=== PATIENT | male | born 1945 | race Caucasian/White ===

== ENCOUNTER 2019-10-14 20:03 | Inpatient (IN) ==
--- NOTE | 2019-10-15 01:21 | HISTORY AND PHYSICAL ---
CHIEF COMPLAINT: Shortness of breath and cough x3 days. HISTORY OF PRESENTING ILLNESS: A 74-year-old male with a history of endstage renal disease and hypertension, who presented to the emergency department initially at [facility] with a complaint of shortness of breath and coughing for the past 3 days. He was evaluated there. He had imaging done which did show pneumonia. The patient also recently had a graft placed for his endstage renal disease, and the family and the patient wanted to be transferred to [facility] for further evaluation and management. At the time of my examination the patient denied any headache, nausea, vomiting, diarrhea, chest pain or hemoptysis, but complained of shortness of breath and cough, not feeling well. PAST MEDICAL HISTORY: Includes hypertension, endstage renal disease. PAST SURGICAL HISTORY: None. ALLERGIES: Darvocet and penicillin. MEDICATIONS: Current medications include amlodipine 10 mg p.o. daily, Lasix 20 mg p.o. daily, metoprolol 25 mg p.o. daily. SOCIAL HISTORY: No history of smoking, alcohol or illicit drug use. FAMILY HISTORY: No history of coronary disease. REVIEW OF SYSTEMS: Fourteen-point review of systems is as listed in HPI. Other systems negative. PHYSICAL EXAMINATION: GENERAL: Cooperative, friendly male. He is resting more comfortably now. VITAL SIGNS: Temperature 97.8 degrees, pulse 89, respirations 22, blood pressure 151/52, saturating 96%. HEENT: Atraumatic, normocephalic. Extraocular movements intact. PERRLA. NECK: No masses. CHEST: Rhonchi. CARDIOVASCULAR: Regular rate and rhythm. ABDOMEN: Soft. Positive bowel sounds. EXTREMITIES: Edema +2. Venous stasis noted. GENITOURINARY: No bladder distention. SKIN: Warm. LABORATORY DATA: WBC 11.6, hemoglobin 6.6, hematocrit 21.0, platelets 221,000. Sodium 138, potassium 5.0, chloride 103, CO2 is 14, BUN is 84, creatinine 9.4, glucose 150. ASSESSMENT: This is a 74-year-old male with a history of hypertension and endstage renal disease, who had presented initially to [facility] with a complaint of shortness of breath and cough. He was evaluated there. He was found to have pneumonia. The patient also has endstage renal disease, and the family wanted the patient transferred to [facility] for his care. 1. Pneumonia. 2. Endstage renal disease. 3. Anemia, unspecified. 4. Hypertension. PLAN: 1. We will admit the patient to the medical floor with telemetry. 2. Check blood cultures. Start the patient on IV antibiotics. 3. We will consult Nephrology. 4. We will monitor blood pressure closely. Resume antihypertensive agents. 5. We will put the patient on DVT prophylaxis with heparin. 6. We will continue to follow and reassess, and make further recommendation based on the patient's clinical course. cc: Aneesh Martinez MD
[2019-10-15] MEDS: AZACTAM 1 GM in NS 50 ML IV SCH ×3 (02:27→21:57)
[2019-10-15] MEDS: DUONEB (A & A) INH PRN ×2 (02:48→08:02)
[2019-10-15] MEDS ORDERED: LASIX IV ONE (08:48)
[2019-10-15] MEDS ORDERED: VANCOMYCIN IV PER PHARMACY MISC SCH (09:00)
[2019-10-15] MEDS: HEPARIN SUBQ SCH ×2 (09:00→21:55)
[2019-10-15] MEDS: MUCINEX PO SCH ×2 (09:01→21:57)
--- NOTE | 2019-10-15 09:04 | Diag Imaging Result Doc PS360 ---
EXAM: CHEST-PORTABLE 10/15/2019 HISTORY: Evaluate for pneumonia TECHNIQUE: AP portable upright at 0848 COMMENT: There are no previous radiographs available for comparison. There is dense alveolar opacity in the left lower lobe and to a lesser extent in the left upper lobe and right lower lobe. There may be some pleural fluid bilaterally. IMPRESSION: Pulmonary edema and/or pneumonia. Electronically signed by Erlin Davalos 10/15/2019 9:01 AM
[2019-10-15 09:15] LABS: ALLEN TEST YES; BE -11.9 mmoll (-3.0-3.0); BLOOD TYPE ARTERIAL; HCO3-(ACT) 15.6 mmoll (20.0-26.0); METHB 0.2 % (0.0-1.5); O2(CT) 9.5 mL/dL (15.0-23.0); O2HB 94.2 % (95.0-99.0); PCO2(98.6) 40 mmHg (35-45); PO2(98.6) 62 mmHg (60-100); SAMPLE BLOOD; SAO2 96.2 % (95.0-100.0); THB 7.1 g/dL (11.5-17.4)
[2019-10-15 09:30] LABS: INR 1.34; PROTIME 16.8 Seconds (11.0-16.0)
[2019-10-15 09:31] LABS: PTT 40.1 Seconds (22.3-41.8)
[2019-10-15 09:38] LABS: BASO# 0.08 X1000 (0.0-0.2); BASO% 0.7 % (0.0-0.8); EOS# 0.47 X1000 (0.0-0.7); HEMATOCRIT 22.4 % (42.0-52.0); HEMOGLOBIN 6.8 g/dL (14.0-18.0); IMM GRAN% 1.7 % (0.0-0.5); LYMPH# 1.38 X1000 (1.2-3.4); LYMPH% 11.9 % (20.5-51.1); MCH 27.6 PG (27-31); MCHC 30.4 g/dL (33-37); MCV 91.1 FL (81-99); MONO# 1.04 X1000 (0.11-0.59); MPV 8.7 FL (7.4-10.4); NEUT# 8.45 X1000 (1.4-6.5); NEUT% 72.7 % (42.2-75.2); PLT 279 X1000 (130-400); RBC 2.46 XMIL (4.7-6.1); RDW 17.3 % (11.5-14.5); WBC 11.62 X1000 (4.8-10.8)
[2019-10-15] MEDS ORDERED: HEPARIN IV PRN (09:41)
[2019-10-15] MEDS ORDERED: TIGHT: 0.2 ML/HR FOR DIALYSIS MISC PRN (09:41)
[2019-10-15] MEDS ORDERED: NS 2,000 ML MISC PRN (09:41)
[2019-10-15 09:43] LABS: ALB/GLOB RATIO 0.8; ALBUMIN 3.2 g/dL (3.5-5.0); CALCIUM 7.3 mg/dL (8.8-10.2); CREATININE 9.5 mg/dL (0.7-1.2); MAGNESIUM 2.1 mg/dL (1.5-2.7); POTASSIUM 5.6 mmol/L (3.5-5.1); TOTAL BILIRUBIN 0.19 mg/dL (0.20-1.00); TOTAL PROTEIN 7.3 g/dL (6.3-8.3)
[2019-10-15] MEDS ORDERED: VANCOMYCIN 1 GM/NS 1 GM/250 ML IVPB IV SCH (10:00)
[2019-10-15 10:34] LABS: MODALITY CANNULA
[2019-10-15 10:35] LABS: pH(98.6) 7.19 (7.35-7.45)
[2019-10-15] MEDS ORDERED: SENSORCAINE 0.5%-EPI 1:200,000 INJ ONE (11:07)
[2019-10-15] MEDS ORDERED: NS 250 ML ONE (11:12)
[2019-10-15] MEDS: HALDOL IV PRN ×2 (11:20→15:26)
[2019-10-15] MEDS: DUONEB (A & A) INH SCH ×4 (11:32→23:31)
--- NOTE | 2019-10-15 11:36 | PROGRESS NOTE ---
DATE: 10/15/2019 INTERVAL HISTORY: I was paged by the nursing team that Mr. Coley had significant dyspnea and requested a bedside evaluation. I immediately evaluated Mr. Coley at bedside. His son was at bedside. Mr. Coley is a little drowsy, though he is easily arousable. He appears tachypneic and dyspneic. He also has audible wheezing. He states that he started feeling sick on about New 's Day. Since then he has had shortness of breath, increasing cough with yellowish expectoration. He denies being diagnosed with influenza. He is not a smoker. He does not have COPD, though he uses inhalers at home. He denies known history of coronary artery disease or venous thromboembolism. VITALS: Temperature of 97.7 degrees, pulse 94, respiratory blood pressure 140/39. He is saturating 92% on 3 L nasal cannula. PHYSICAL EXAMINATION: General: He is in mild to moderate distress. HEENT: Oral cavity is moist. Lungs: Significantly decreased air entry with inspiratory crackles bilateral infrascapular region, more pronounced on the left. Cardiovascular: S1, S2 normal. Regular. No murmur or gallop. Abdomen: Obese, soft, nontender. No jugular venous distention. He has extreme edema of bilateral lower extremities and scaling. He is alert and oriented x3 at the moment. LABS: Stat labs were ordered which suggests leukocytosis normocytic anemia, normal platelet count. INR of 1.3. He has hyperkalemia, elevated BUN and creatinine, elevated proBNP. His ABG is pending. MICROBIOLOGY: Blood culture are in lab. IMAGING: A stat chest x-ray suggested pulmonary edema and/or pneumonia. ASSESSMENT AND PLAN: 1. Acute hypoxic respiratory failure due to acute bilateral pulmonary edema and bilateral lower lobe pneumonia. He also has a component of volume overload secondary to chronic kidney disease. Start broader intravenous antibiotic coverage. Continue intravenous vancomycin, intravenous aztreonam, and give a stat dose of Lasix. Insert Singer catheter for close input and output monitoring. Followup stat chest x-ray and stat ABG. Follow up blood cultures, sputum culture and urine antigen results. 2. History of essential hypertension, currently normotensive. 3. History of chronic kidney disease. According to patient it is likely hypertensive nephropathy. I will consult Nephrology team. He recently had surgery for a vascular access as outpatient, however, would require dialysis catheter if he needs to start the dialysis. Nephrology team on board. DISPOSITION: I will transfer patient to PVC unit. He looked quite ill and I discussed his clinical condition extensively with his him and his son at bedside. cc: Daljit Stewart MD
--- NOTE | 2019-10-15 12:20 | EKG Report ---
Test Performed on : 10/15/2019 12:13:27 PM Test Reason : SHortness of breath Blood Pressure : / mmHG Vent. Rate : 076 BPM Atrial Rate : 076 BPM P-R Int : 172 ms QRS Dur : 104 ms QT Int : 376 ms P-R-T Axes : 054 004 079 degrees QTc Int : 423 ms Normal sinus rhythm. Normal ECG Confirmed by Kareem TAYLOR, Geo Almonte ([id number]) on 10/17/2019 9:28:26 AM
--- NOTE | 2019-10-15 14:38 | ECHO REPORT ---
ORDER DATE: 10/15/2019 INDICATION: Bilateral lower extremity edema. Pleural effusions. FINDINGS: 1. Right atrium appears normal in size. 2. Mild tricuspid regurgitation. RV systolic pressure of 45 suggesting pulmonary hypertension. 3. Dilated right ventricle with normal RV systolic function. 4. Mild pulmonic insufficiency. 5. Mild left atrial enlargement at 4 cm. 6. No mitral valve prolapse. Mild mitral regurgitation. 7. Dilated left ventricle with an end-diastolic dimension of 6 cm. Normal wall thicknesses with a posterior and interventricular septal wall thickness of 1 cm each. Normal LV systolic function. Estimated EF of 60% with normal wall motion. 8. Aortic valve opens well. No evidence of stenosis or insufficiency. 9. Aorta appears normal in visualized segments. 10. No pericardial effusion identified. Suggestion of a pleural effusion on this study. cc: MD Daljit Edwards MD
--- NOTE | 2019-10-15 15:40 | Diag Imaging Result Doc PS360 ---
EXAM: CHEST-1 VIEW 10/15/2019 HISTORY: CONFIRM PLACEMENT OF VAS CATH TECHNIQUE: AP portable at 1526 COMMENT: There are patchy alveolar opacities bilaterally. This has improved with respect to the right lower lobe since 10/15/2019 at 0848. There is a double-lumen catheter in the left internal jugular with its tip in the superior vena cava. There is no evidence of pneumothorax. IMPRESSION: Pulmonary edema versus pneumonia. Slightly improved. Electronically signed by Erlin Davalos 10/15/2019 3:38 PM
[2019-10-15] MEDS: TYLENOL PO PRN (16:02)
--- NOTE | 2019-10-15 16:29 | NEPHROLOGY CONSULTATION ---
DATE: 10/15/2019 REASON FOR CONSULTATION: Respiratory failure and renal failure. HISTORY OF PRESENT ILLNESS: Mr. Coley is a 74-year-old white male who is well known to me. He has chronic kidney disease stage 5 secondary to hypertension and IgA nephropathy by biopsy performed 03/01/2018. His kidney function has been deteriorating and we have been making plans for renal replacement therapy. Specifically, he plans for hemodialysis when required. He underwent fistula creation by Dr. Radford approximately 3 weeks ago using a percutaneous technique. Unfortunately he has become ill in the last several days and required admission to the hospital. Specifically, he has been experiencing worsening shortness of breath, cough, sputum production for the last 3 days least. No chills or fevers. He presented to the emergency room in [place] where a chest x-ray suggested pneumonia and after consultation with the patient and family, he was transferred to this facility. At this time he is on closed face mask, remains significantly short of breath. No change in urine output. More swelling. PAST MEDICAL HISTORY: As above. HOME MEDICATIONS: Include amlodipine, furosemide, metoprolol. ALLERGIES: Penicillin, propoxyphene, sulfa. SOCIAL HISTORY: . Lives with his family in [place]. No alcohol or tobacco. FAMILY HISTORY: Noncontributory. REVIEW OF SYSTEMS: Noncontributory. PHYSICAL EXAMINATION: Vital Signs: Blood pressure 140/38, heart rate 73, respirations 14, afebrile. General: Moderate respiratory distress. Skin is warm and dry. Conjunctivae are pink. Pupils are equal. Oropharynx is clear. Neck: Supple. Neck vein distention is present. Trachea is midline. Heart: PMI is hyperdynamic. Auscultation demonstrates a regular rhythm with no rubs, no gallops. Lungs: Have equal breath sounds with crackles and decreased breath sounds in the bases. Abdomen: Soft, nontender. Bowel sounds are present. No organomegaly or masses. Extremities: With 2+ edema primarily below the knee. No clubbing or cyanosis. Left arm AV fistula has a prominent thrill but contours of the vessel are difficult to discern. Neurologic: Nonfocal. IMPRESSION: Chronic kidney disease stage 5. Chest x-ray supports a diagnosis of pulmonary edema with or without pneumonia. He has potassium 5.6, bicarbonate 15. ABG with combined metabolic and respiratory acidoses. I believe it is in the patient's best interest to initiate dialysis. I counseled him about this as well as his family. We have been trying to put off dialysis initiation awaiting functional fistula but given the circumstances, I have spoken with Dr. Russell who will place a temporary Vas-Cath so that we can initiate treatment. We will reassess his fistula on Thursday. We will manage his acidosis and hyperkalemia with dialysis today. Hemoglobin is 6.8. May require transfusion. cc: Rudi Montgomery MD
[2019-10-15] MEDS ORDERED: VANCOMYCIN 1 GM/NS 1 GM/250 ML IVPB IV ONE (17:00)
--- NOTE | 2019-10-15 17:37 | OPERATIVE NOTE ---
PROCEDURE DATE: 10/15/2019 PREOPERATIVE DIAGNOSIS: 1. Acute on chronic kidney disease. 2. Pneumonia. 3. Respiratory failure. POSTOP DIAGNOSIS: 1. Acute on chronic kidney disease. 2. Pneumonia. 3. Respiratory failure. PROCEDURE: Insertion of central venous dialysis catheter with ultrasound guidance. SURGEON: Seb Russell MD. ESTIMATED BLOOD LOSS: 3 mL. COMPLICATIONS: None apparent. FINDINGS: Access of the right internal jugular vein was attempted initially. It was compressible, patent and without thrombus on ultrasound. However, after initial attempt at cannulation it became somewhat smaller but still appeared to be patent on ultrasound. The left internal jugular vein was found with ultrasound was found to be compressible, patent, without thrombus. TECHNIQUE: He was placed in supine position. The right neck was prepped and draped 1st with the usual sterile technique. 1% lidocaine was used to anesthetize the skin over the internal jugular vein. I was able to cannulate the vein under ultrasound guidance a couple of different times however the wire would not pass perhaps due to a valve in the vein. I aborted any further attempts on the right side. We then prepped and draped the left side. I was able to access the vein with 1 stick under ultrasound guidance. The wire passed through the needle easily, the track was dilated. A double lumen dialysis catheter was passed over the wire into the vein via the Seldinger technique. The wire was removed. Both ports were flushed with saline. Sterile caps were applied. It was anchored to the skin with nylon suture. Sterile dressing was applied. A chest x-ray was ordered. There were no apparent complications. cc: Seb Russell MD
[2019-10-15] MEDS ORDERED: DILAUDID IV ONE (20:49)
--- NOTE | 2019-10-15 22:09 | EKG Report ---
Test Performed on : 10/15/2019 9:54:41 PM Test Reason : rhythm change Blood Pressure : / mmHG Vent. Rate : 089 BPM Atrial Rate : 089 BPM P-R Int : 184 ms QRS Dur : 102 ms QT Int : 376 ms P-R-T Axes : 049 -12 092 degrees QTc Int : 457 ms Normal sinus rhythm. Abnormal QRS-T angle, consider primary T wave abnormality Abnormal ECG When compared with ECG of 15-OCT-2019 12:13, (Unconfirmed) No significant change was found Confirmed by Kareem TAYLOR, Geo Almonte ([id number]) on 10/17/2019 9:28:46 AM
[2019-10-15 22:18] LABS: HEMATOCRIT 19.9 % (42.0-52.0)
[2019-10-16] MEDS ORDERED: NS 500 ML IV SCH (00:30)
[2019-10-16] MEDS: DUONEB (A & A) INH SCH ×6 (03:35→22:54)
[2019-10-16] MEDS: TYLENOL PO PRN ×2 (04:41→14:08)
[2019-10-16] MEDS: AZACTAM 1 GM in NS 50 ML IV SCH ×4 (05:11→21:19)
[2019-10-16 06:31] LABS: BASO# 0.05 X1000 (0.0-0.2); BASO% 0.6 % (0.0-0.8); EOS# 0.64 X1000 (0.0-0.7); EOS% 7.9 % (0.0-10.0); HEMATOCRIT 21.7 % (42.0-52.0); HEMOGLOBIN 6.6 g/dL (14.0-18.0); IMM GRAN# 0.08 X1000 (0.0-0.04); LYMPH# 1.24 X1000 (1.2-3.4); LYMPH% 15.3 % (20.5-51.1); MCH 27.4 PG (27-31); MCHC 30.4 g/dL (33-37); MONO# 0.74 X1000 (0.11-0.59); MONO% 9.1 % (1.7-9.3); NEUT# 5.34 X1000 (1.4-6.5); NEUT% 66.1 % (42.2-75.2); PLT 209 X1000 (130-400); RBC 2.41 XMIL (4.7-6.1); RDW 16.3 % (11.5-14.5); WBC 8.09 X1000 (4.8-10.8)
--- NOTE | 2019-10-16 06:51 | Diag Imaging Result Doc PS360 ---
EXAM: CHEST-PORTABLE 10/16/2019 HISTORY: dyspnea TECHNIQUE: AP portable at 0619 COMMENT: There is alveolar opacity throughout the lingula and left lower lobe and right lower lobe with minimal opacification of the right upper lobe. This appears slightly worse than on the previous study of 10/15/2019. There is cardiomegaly. IMPRESSION: Worsened pulmonary edema. Electronically signed by Erlin Davalos 10/16/2019 6:49 AM
[2019-10-16 07:01] LABS: IRON SATURATION 29 %; TIBC 153 ug/dL; TOTAL IRON 44 ug/dL (53-167); UNBOUND IRON 109 ug/dL (112-346)
[2019-10-16] MEDS ORDERED: LASIX IV ONE (07:14)
[2019-10-16 07:18] LABS: MAGNESIUM 1.8 mg/dL (1.5-2.7); PHOSPHORUS 8.6 mg/dL (2.7-4.5)
[2019-10-16 07:41] LABS: POTASSIUM 4.7 mmol/L (3.5-5.1)
[2019-10-16 07:51] LABS: FERRITIN 176 ng/mL (30-400)
[2019-10-16] MEDS ORDERED: LASIX 120 MG in NS 25 ML IV ONE (08:00)
[2019-10-16] MEDS ORDERED: HEPARIN IV PRN (08:13)
[2019-10-16] MEDS ORDERED: NS 2,000 ML MISC PRN (08:13)
--- NOTE | 2019-10-16 09:38 | PROGRESS NOTE ---
DATE: 10/16/2019 INTERVAL HISTORY: He underwent hemodialysis yesterday. He was transferred to [facility] Unit. No other acute overnight events. He was on BiPAP and was transitioned to nasal cannula in the morning time and is saturating 92%. SUBJECTIVE: He states he is still feeling sick and is feeling short of breath. He is coughing with expectoration. He is denying any chest pain. VITAL SIGNS: Temperature of 98.5 degrees, pulse 80, respiratory rate 20, blood pressure 170/55, saturating 96% on 5 L nasal cannula. PHYSICAL EXAMINATION: General: Tachypneic, in mild distress. HEENT: Oral cavity is moist. Lungs: He has decreased air entry with inspiratory crackles in bilateral lung xie, more pronounced on the lower part. Cardiovascular: S1, S2 normal. Not tachycardic. No murmur, rub, or gallop. Abdomen: Obese, soft, nontender. Extremities: He has extreme edema of bilateral lower extremities and scaling. Neurologic: He is alert and oriented x3. LABORATORY DATA: Suggestive of improving leukocytosis. He does have anemia and he received 1 unit of blood transfusion. Chemistry suggestive of improving hyperkalemia, elevated BUN and creatinine, hypocalcemia. Microbiology: Blood cultures are in lab. IMAGING: Chest x-ray yesterday morning suggests worsened pulmonary edema. ASSESSMENT AND PLAN: 1. Acute hypoxic respiratory failure due to acute bilateral pulmonary edema in the setting of volume overload related to chronic kidney disease as well as bilateral lower lobe pneumonia. Continue dialysis per Nephrology recommendation. I will give another dose of intravenous Lasix stat. Continue intravenous vancomycin, aztreonam with Singer catheter and close input and output monitoring. Continue oxygenation to maintain saturation more than 92% and follow up serial ABG. His sputum culture has not been collected. 2. Essential hypertension. I will resume his home medication as tolerated. 3. History of chronic kidney disease, likely related to hypertensive nephropathy. I will appreciate Nephrology recommendation regarding dialysis today. He received a left-sided chest hemodialysis catheter yesterday. 4. Normocytic anemia: Ferritin levels are normal. This could be related to his CKD. He required 1 PRBC transfusion overnight. I will appreciate Nephrology recommendations regarding transfusion during dialysis today. DISPOSITION: Continue to monitor patient in [facility]. cc: Daljit Stewart MD [facility] SYSTEMMary
[2019-10-16] MEDS: HEPARIN SUBQ SCH ×2 (12:36→20:48)
[2019-10-16] MEDS: MUCINEX PO SCH ×2 (12:36→20:48)
[2019-10-16 13:44] LABS: ALLEN TEST YES; BE -1.4 mmoll (-3.0-3.0); BLOOD TYPE ARTERIAL; HCO3-(ACT) 23.8 mmoll (20.0-26.0); METHB 1.5 % (0.0-1.5); MODALITY CANNULA; O2HB 92.8 % (95.0-99.0); PCO2(98.6) 45 mmHg (35-45); PO2(98.6) 62 mmHg (60-100); SAMPLE BLOOD; THB 7.6 g/dL (11.5-17.4); pH(98.6) 7.34 (7.35-7.45)
[2019-10-16] MEDS ORDERED: VANCOMYCIN 1 GM/NS 1 GM/250 ML IVPB IV ONE (17:00)
[2019-10-16] MEDS ORDERED: MELATONIN PO SCH (21:00)
[2019-10-17] MEDS ORDERED: MELATONIN PO ONE (01:03)
[2019-10-17] MEDS: DUONEB (A & A) INH SCH ×5 (03:33→23:29)
[2019-10-17] MEDS: AZACTAM 1 GM in NS 50 ML IV SCH ×3 (05:25→20:22)
[2019-10-17] MEDS ORDERED: TIGHT: 0.2 ML/HR FOR DIALYSIS MISC PRN (06:14)
[2019-10-17] MEDS ORDERED: NS 2,000 ML MISC PRN (06:14)
[2019-10-17] MEDS ORDERED: HEPARIN IV PRN (06:14)
[2019-10-17 06:49] LABS: BASO# 0.04 X1000 (0.0-0.2); BASO% 0.5 % (0.0-0.8); EOS# 0.79 X1000 (0.0-0.7); EOS% 10.4 % (0.0-10.0); HEMOGLOBIN 7.2 g/dL (14.0-18.0); IMM GRAN# 0.07 X1000 (0.0-0.04); IMM GRAN% 0.9 % (0.0-0.5); LYMPH# 1.44 X1000 (1.2-3.4); LYMPH% 18.9 % (20.5-51.1); MCH 27.6 PG (27-31); MONO# 1.06 X1000 (0.11-0.59); MONO% 13.9 % (1.7-9.3); MPV 9.3 FL (7.4-10.4); NEUT# 4.23 X1000 (1.4-6.5); NEUT% 55.4 % (42.2-75.2); PLT 221 X1000 (130-400); RBC 2.61 XMIL (4.7-6.1); RDW 16.1 % (11.5-14.5); WBC 7.63 X1000 (4.8-10.8)
[2019-10-17 07:14] LABS: CALCIUM 7.2 mg/dL (8.8-10.2); POTASSIUM 4.1 mmol/L (3.5-5.1)
[2019-10-17 07:20] LABS: CREATININE 6.6 mg/dL (0.7-1.2)
[2019-10-17 09:55] LABS: HEPATITIS PROFILE ACUTE SEE COMMENTS
--- NOTE | 2019-10-17 10:48 | NEPHROLOGY PROGRESS NOTE ---
DATE: 10/17/2019 TIME SEEN: 0630. SUBJECTIVE: Mr. Coley states that he is feeling much better. Has not been up out of bed. Continues with Vas-Cath to the left IJ. LABORATORY DATA: Sodium 140, potassium 4.1, chloride 100, CO2 of 24, BUN 49, creatinine 6.6, glucose 120, his anion gap is 16, calcium is 7.2, albumin 3.2. White count 7.63, hemoglobin 7.2, hematocrit 24, platelet count 221,000. OBJECTIVE: Most Recent Vital Signs: Temperature 98.4 degrees, blood pressure 141/59, heart rate is 124, respirations are 16. He is currently on 6 L nasal cannula. Last recorded saturation 93%. He has had 100 in. He has had 4.3 L removed on his previous dialysis. General: This is a 74- year-old, white male. He is currently resting quietly in bed. He appears chronically ill, in no acute distress. Skin: Warm and dry. HEENT: Normocephalic, atraumatic. Conjunctiva is pale. He has TAMERA. Mucous membranes are dry. Neck: Supple. Trachea midline. He has positive JVD with hepatojugular reflux. Cardiovascular: Regular rate and rhythm. He has a systolic murmur present. Lungs: Clear to auscultation anterior. Diminished breath sounds posterior bases. Remains on 6 L nasal cannula. Occasional cough. Abdomen: Large, round, soft, nontender. Positive bowel sounds. Genitourinary: Not inspected. The patient has Singer catheter in place with adequate urine out. Extremities: Continues with 2+ lower extremity edema up into the mid hip region. The patient has a left arm AV fistula with palpable thrill. Neurological: Alert and oriented x3. ASSESSMENT AND PLAN: 1. Chronic kidney disease stage 5. The patient has started on hemodialysis in the hospital. Currently has a Vas-Cath to the left internal jugular. He has an arteriovenous fistula to the left forearm. It has palpable thrill. We will request vascular lab to evaluate the blood flow to this fistula, with possible plan for use if stable in the near future. Plan for dialysis today per his Vas-Cath. He is to dialyze on a 2-potassium bath. He will dialyze for 3.5 hours. We will attempt to pull 4 liters of ultrafiltration. 2. Electrolytes and acid-base balance with correction on dialysis. 3. Anemia. This is low with a hemoglobin of 7.2. The patient has received 1 unit of pheresed packed red blood cells. We will continue to monitor and evaluate. I would like to thank you for allowing us to follow with this patient. Dictated by LONNIE Hernández for Rudi Montgomery MD Face to face encounter, data reviewed, discussed with Silvino Alejandre on 10/17/19. I agree with the above assessment and plan of care. cc: LONNIE Hernández MD [facility]
[2019-10-17] MEDS: MUCINEX PO SCH ×2 (12:59→20:22)
[2019-10-17] MEDS: HEPARIN SUBQ SCH ×2 (12:59→20:22)
[2019-10-17] MEDS: FOLIC ACID PO SCH (13:06)
[2019-10-17] MEDS: TYLENOL PO PRN ×2 (13:36→20:22)
--- NOTE | 2019-10-17 14:01 | Diag Imaging Result Doc PS360 ---
EXAM: CHEST-PORTABLE HISTORY: fluid volume overload TECHNIQUE: Single view COMPARISON: 10/16/2019 FINDINGS: There is a [id number] sized left pleural effusion. There are increased interstitial markings. These are less prominent than on the prior study. There is atelectasis in the left base. No change in the left catheter. IMPRESSION: Interval improvement Electronically signed by Segundo Montgomery 10/17/2019 1:58 PM
[2019-10-17] MEDS: OXY IR PO PRN (15:29)
[2019-10-17] MEDS ORDERED: VANCOMYCIN 1 GM/NS 1 GM/250 ML IVPB IV ONE (17:00)
--- NOTE | 2019-10-17 17:56 | PROGRESS NOTE ---
DATE: 10/17/2019 INTERVAL HISTORY: No acute events overnight. He denies any new complaints except back pain. His is at bedside. We discussed about improving pneumonia. I answered all of his questions. VITALS: Temperature 98 degrees, pulse 81, respiratory rate 19, and blood pressure 170/55. He is saturating 97% on 3 L nasal cannula. PHYSICAL EXAMINATION: General: Not in acute distress. HEENT: Oral cavity is moist. Respiratory: He had decreased air entry with inspiratory crackles bilateral infrascapular region. It is more pronounced on the left. Cardiovascular: S1, S2 normal. No murmur or gallop. Abdomen: Obese, soft. There is dullness to percussion over the flanks. Extremities and Neurologic: His lower extremity edema is significantly improved. He does have generalized erythema and flaking of the lower extremities. He is alert and oriented x3. He has a dialysis catheter in his chest. Left upper extremity fistula with a thrill. LABORATORY: Labs suggestive of resolution of leukocytosis, normocytic anemia, normal platelet count, elevated BUN and creatinine, and hypocalcemia is improving. MICROBIOLOGY: No positive data. DIAGNOSTIC: Chest x-ray suggests interval improvement. ASSESSMENT AND PLAN: 1. Acute hypoxic respiratory failure due to acute bilateral pulmonary edema in the setting of volume overload related to chronic kidney disease as well as bilateral lower lobe pneumonia. Continue dialysis as per Nephrology, intravenous vancomycin and aztreonam. Decrease oxygen to maintain saturation more than 92%. No positive culture data yet. 2. Essential hypertension. He has been hypertensive today, and I will start him on his home metoprolol though his home medications have not been reconciled yet. Considering lower extremity edema, I am holding his amlodipine. 3. History of chronic kidney disease. He was following up with Nephrology outpatient however, and it was being monitored outpatient. However, considering his volume overload on presentation, dialysis has been initiated. 4. Normocytic anemia. He is status post 1 unit of RBC transfusion. 5. I appreciate Nephrology's recommendation about future need of transfusion. DISPOSITION: I will continue to monitor patient in [facility]. I will transition him to routine medical floor in the next 24 hours. Plan of care discussed with the patient. His questions have been answered. His 's questions have also been answered. I will add oxycodone for his back pain as well as increase the dose of melatonin for insomnia. He would need definite dialysis plan and accordingly discharge in next 48 hours or so. cc: Daljit Stewart MD [facility]
[2019-10-17] MEDS: COREG PO SCH (18:21)
[2019-10-17] MEDS: MELATONIN PO SCH (20:31)
[2019-10-18] MEDS: DUONEB (A & A) INH SCH ×7 (00:08→23:08)
[2019-10-18] MEDS: COREG PO SCH ×3 (02:02→20:24)
[2019-10-18] MEDS: AZACTAM 1 GM in NS 50 ML IV SCH ×4 (02:02→22:46)
[2019-10-18 07:52] LABS: BASO# 0.04 X1000 (0.0-0.2); BASO% 0.5 % (0.0-0.8); EOS% 12.2 % (0.0-10.0); HEMATOCRIT 24.4 % (42.0-52.0); HEMOGLOBIN 7.3 g/dL (14.0-18.0); IMM GRAN# 0.09 X1000 (0.0-0.04); IMM GRAN% 1.1 % (0.0-0.5); LYMPH# 1.65 X1000 (1.2-3.4); LYMPH% 20.1 % (20.5-51.1); MCH 27.9 PG (27-31); MCHC 29.9 g/dL (33-37); MCV 93.1 FL (81-99); MONO# 1.16 X1000 (0.11-0.59); MONO% 14.2 % (1.7-9.3); MPV 9.1 FL (7.4-10.4); NEUT# 4.25 X1000 (1.4-6.5); NEUT% 51.9 % (42.2-75.2); PLT 219 X1000 (130-400); RBC 2.62 XMIL (4.7-6.1); RDW 15.9 % (11.5-14.5); WBC 8.19 X1000 (4.8-10.8)
[2019-10-18 08:11] LABS: CALCIUM 7.6 mg/dL (8.8-10.2); CREATININE 5.5 mg/dL (0.7-1.2); MAGNESIUM 1.7 mg/dL (1.5-2.7); PHOSPHORUS 5.6 mg/dL (2.7-4.5); POTASSIUM 4.5 mmol/L (3.5-5.1)
[2019-10-18] MEDS: FOLIC ACID PO SCH (08:42)
[2019-10-18] MEDS: TYLENOL PO PRN (08:42)
[2019-10-18] MEDS: MUCINEX PO SCH ×2 (08:42→20:24)
[2019-10-18] MEDS: HEPARIN SUBQ SCH ×2 (08:42→20:25)
[2019-10-18] MEDS: HYDROCORTISONE 1% OINTMENT TOP SCH ×2 (15:05→20:25)
[2019-10-18] MEDS: MIRALAX PO SCH (20:24)
[2019-10-18] MEDS: COLACE PO SCH (20:24)
[2019-10-18] MEDS: MELATONIN PO SCH (20:24)
--- NOTE | 2019-10-18 21:22 | PROVIDER PROGRESS NOTE ---
Progress Note Subjective: Pt complains of shortness of breath with no other symptoms. Objective: temperature 98.0, pulse 64, respirations 20, blood pressure 181/45, oxygen sat 95% on 3 L nasal cannula. General: obese male lying in bed in no acute distress HEENT: normocephalic, atraumatic, pupils equal and reactive, mucous membranes moist. Trachea midline. Skin: warm and dry. Neck: supple, 8 cm JVD appreciated. Cardiovascular: distant heart tones, S1S2, regular rate and rhythm. No murmurs or gallops. Respiratory: clear anteriorly with equal entry. Abdomen: soft, obese, nontender nondistended. Bowel sounds hypoactive. : non-inspected. Extremities: 2+ pitting to BLE Neurological: drowsy, oriented to person and place. Labs: WBC 8.19, hemoglobin 7.3, hematocrit 24.4, platelet count 219, sodium 139, potassium 4.5, chloride 98, carbon dioxide 24, BUN 37, creatinine 5.5. Intake 336, output 3947. Impression: Chronic kidney disease stage 5D. His creatinine and BUN has improved with hemodialysis treatment yesterday. Besides shortness of breath, he has no other uremic complaints. We are currently using his vas-cath to the left internal Jugular. He has an AV fistula to the left forearm that is 3 weeks old and will be evaluated for use. He has been evaluated by Dr. Radford. rg Blood pressure. Slightly above target. Increase Coreg to 12.5 BID. rg Fluid volume. Expanded. He will have hemodialysis tomorrow. Electrolytes and acid base balance. Correcting with hemodialysis. Nutrition. Adequate.
[2019-10-18] MEDS: OXY IR PO PRN (22:45)
--- NOTE | 2019-10-19 00:29 | PROGRESS NOTE ---
DATE: 10/18/2019 SUBJECTIVE: The patient is sitting up reading the paper. He has multiple excoriations on his arms from scratching. He states that he has been suffering from pruritus for quite some time. OBJECTIVE: Vital signs: Temperature 98 degrees, blood pressure 131/41, heart rate 65, respirations 18, O2 saturation 96% on 2 L nasal cannula.General: This is a morbidly obese male, sitting up in bed in no acute distress. Heart: S1, S2 normal. Regular rate and rhythm. Lungs clear to auscultation bilaterally. Abdomen: Positive bowel sounds. Soft, nontender, nondistended. Extremities: Edema 2+. The patient has multiple excoriations involving his arms. Neurologic: The patient is alert and oriented x4. LABORATORY DATA: White blood cell count 8.1, hemoglobin 7.3, hematocrit 24, platelets 219,000. Sodium 139, potassium 4.5, chloride 98, CO2 is 24, BUN 37, creatinine 5.5, glucose 90. ASSESSMENT AND PLAN: 1. Acute hypoxemic respiratory failure. We will continue to try and wean the patient off of supplemental oxygen. 2. Volume overload. Slowly improving. This will be addressed during the patient's routine dialysis sessions. 3. Bilateral lobe pneumonia. Continue on the current antibiotic regimen, supplemental oxygen and bronchodilator therapy. 4. Pruritus. We will start the patient on hydrocortisone cream as needed. 5. Chronic kidney disease stage 5. Management as per the acute care nurse. 6. Hypertension. Continue on the current antihypertensive regimen. 7. Insomnia. Continue on melatonin. 8. Deep vein thrombosis prophylaxis. Continue on heparin. cc: Jeannie Garcia MD [facility]
[2019-10-19] MEDS: DUONEB (A & A) INH SCH ×6 (03:41→23:47)
[2019-10-19] MEDS: AZACTAM 1 GM in NS 50 ML IV SCH ×3 (06:30→21:15)
[2019-10-19] MEDS ORDERED: NS 2,000 ML MISC PRN (06:37)
[2019-10-19] MEDS ORDERED: TIGHT: 0.2 ML/HR FOR DIALYSIS MISC PRN (06:37)
[2019-10-19] MEDS ORDERED: HEPARIN IV PRN (06:37)
[2019-10-19 06:57] LABS: ALBUMIN 2.8 g/dL (3.5-5.0); CALCIUM 7.7 mg/dL (8.8-10.2); PHOSPHORUS 6.5 mg/dL (2.7-4.5); POTASSIUM 4.4 mmol/L (3.5-5.1)
[2019-10-19 07:19] LABS: BASO# 0.07 X1000 (0.0-0.2); BASO% 0.8 % (0.0-0.8); EOS% 13.2 % (0.0-10.0); HEMATOCRIT 24.2 % (42.0-52.0); HEMOGLOBIN 7.3 g/dL (14.0-18.0); IMM GRAN# 0.12 X1000 (0.0-0.04); IMM GRAN% 1.4 % (0.0-0.5); LYMPH% 20.5 % (20.5-51.1); MCH 27.8 PG (27-31); MCHC 30.2 g/dL (33-37); MONO# 1.19 X1000 (0.11-0.59); MONO% 14.3 % (1.7-9.3); MPV 9.4 FL (7.4-10.4); NEUT# 4.13 X1000 (1.4-6.5); NEUT% 49.8 % (42.2-75.2); PLT 217 X1000 (130-400); RBC 2.63 XMIL (4.7-6.1); RDW 15.5 % (11.5-14.5); WBC 8.31 X1000 (4.8-10.8)
[2019-10-19] MEDS ORDERED: HYDROCORTISONE 1% OINTMENT TOP PRN (08:11)
[2019-10-19] MEDS: COLACE PO SCH (09:31)
[2019-10-19] MEDS: HEPARIN SUBQ SCH ×2 (09:32→21:16)
[2019-10-19] MEDS: COREG PO SCH ×2 (09:32→21:16)
[2019-10-19] MEDS: FOLIC ACID PO SCH (09:32)
[2019-10-19] MEDS: MIRALAX PO SCH (09:33)
[2019-10-19] MEDS: MUCINEX PO SCH ×2 (09:33→21:16)
[2019-10-19] MEDS: KENALOG 0.1% OINTMENT TOP SCH ×2 (09:38→14:00)
--- NOTE | 2019-10-19 11:54 | PROGRESS NOTE ---
DATE: 10/19/2019 SUBJECTIVE: The patient is resting comfortably in bed. He still complains of itching on his arms and legs. OBJECTIVE: Vital Signs: Temperature 97.4 degrees, blood pressure 154/38, heart rate 73, respirations 20. O2 saturation 98% on 2 L nasal cannula. General: This is a chronically ill- appearing elderly male sitting up in bed in no acute distress. Heart: S1, S2 normal. Regular rate and rhythm. Lungs: Equal air entry bilaterally. Diminished breath sounds at the bases. Abdomen: Positive bowel sounds. Soft, obese, nontender, nondistended. Extremities: 2+ edema in both lower extremities with erythema. Neurologic: The patient is alert and oriented x4. LABORATORY: White blood cell count 8.3, hemoglobin 7.3, hematocrit 24, platelets 217,000. Sodium 139, potassium 4.4, chloride 100, CO2 24, BUN 55, creatinine 7, glucose 95. ASSESSMENT AND PLAN: 1. Acute hypoxemic respiratory failure. Continue to treat the underlying pneumonia. 2. Volume overload. Slowly improving. The patient is due for dialysis today. 3. Bilateral lobe pneumonia. Continue on the current antibiotic regimen. 4. Bilateral lower extremity cellulitis. Continue with antibiotic therapy. 5. Pruritus. Continue with the steroid ointment. 6. Chronic kidney disease stage 5. Continue with dialysis as scheduled by the leather piece inspector. 7. Insomnia. Continue on melatonin. 8. Morbid obesity. Aware. 9. Hypertension. Continue on the current antihypertensive regimen. 10. Deep vein thrombosis prophylaxis. Continue on heparin. 11. Disposition. Once the patient is medically stable, he will be discharged home with home health. cc: Jeannie Garcia MD
--- NOTE | 2019-10-19 13:29 | NEPHROLOGY PROGRESS NOTE ---
DATE: 10/19/2019 TIME SEEN: 0725 hours. SUBJECTIVE: Mr. Coley is resting quietly in bed. His son is at his bedside. States that he has just seen Dr. Montgomery. It is an understanding that he may possibly have an evaluation of his right upper arm fistula with a possible placement of a dialysis tunneled catheter. OBJECTIVE: His most recent vital signs: Temperature 97.9 degrees blood pressure 143/36, heart rate 62 respirations 20. He is on 2 L nasal cannula. Last recorded saturation 99%. LABS: Sodium is 139, his potassium is 4.4, chloride 100, CO2 24. BUN is 55, creatinine is up to 7, glucose of 95. The patient has an anion gap of 15. His calcium is 7.7 phosphorus 6.5, albumin is 2.8. White count 8.31, glucose of 7.3, hematocrit of 24.2, platelet count 217. PHYSICAL EXAMINATION: General: This is a 74-year-old white male. He is currently resting quietly in bed. He appears chronically ill, no acute distress. Skin: Warm and dry. HEENT: Normocephalic, atraumatic. Conjunctiva is pale pink. He has TAMERA. Mucous membranes are moist. Neck: Supple. Trachea midline. He has positive JVD in the upright position. Positive hepatojugular reflex is present. Cardiovascular: Regular rate and rhythm. Distant heart sounds. No murmur or gallop is appreciated. Lungs: Clear to auscultation anteriorly after clearing with cough. He currently remains on O2. Abdomen: Large, round, soft, nontender. Positive bowel sounds. Genitourinary: Not inspected. Patient has been voiding with dialysis assist. Extremities: Have improved with 1+ lower extremity edema. Integumentary: He has multiple excoriations to his upper arms, some to his upper thigh area. The patient's skin is dry. He has been putting hydrocortisone ointment on these areas. We have encouraged him to attempt to cut his nails short and not scratch. Neurological: Alert and oriented x3. ASSESSMENT AND PLAN: 1. Chronic kidney disease stage 5 D. Patient's BUN and creatinine remain elevated, status post no dialysis day yesterday. We will place him on a 2 potassium bath today. He is to dialyze for 3-1/2 hours. We will attempt to pull 2 liters of ultrafiltration. Malina will help with access to facilitate discharge. 2. Electrolytes and acid-base balance with planned correction on dialysis. 3. Anemia. This remains low. Hemoglobin of 7.3, though this is improved during his hospital stay, status post 1 unit of transfused packed red blood cells. We will continue to monitor. 4. Pneumonia. Patient continues to have productive cough. Occasional wheezing. Encourage deep breath exercises approximately every hour. We will go ahead and have them put an incentive spirometer at his bedside if not currently present. I would like to thank you for allowing us to follow with this patient. Dictated by LONNIE Hernández for Rudi Montgomery MD Face to face encounter, data reviewed, discussed with Silvino Alejandre on 10/19/19. I agree with the above assessment and plan of care. cc: LONNIE Hernández MD [facility]
[2019-10-19] MEDS ORDERED: CATHFLO IV ONE ×2 (14:47)
[2019-10-19] MEDS ORDERED: STERILE WATER INJ. INJ ONE (14:47)
--- NOTE | 2019-10-19 15:45 | CONSULTATION ---
DATE OF CONSULTATION: 10/19/2019 CONCLUSION: The patient has bilateral leg cellulitis. RECOMMENDATIONS: The antibiotic regimen that the patient currently is getting I think is also very good for treating the patient's leg cellulitis. What I have added is that the patient is to have the foot of his bed elevated with the manual gatch continuously. Also I have ordered that when the patient is sitting that his leg should be elevated. I have discussed with the patient that he needs to lose weight and this would help in having less edema in the legs and that should help in preventing another outbreak of leg cellulitis. With the patient's starting dialysis, hopefully that will remove a lot of fluid and that will make it easier for the patient's legs to get rid of the cellulitis. I explained to the patient also to stay away from salt and salty food because that tends to keep fluid in the legs. DISCUSSION: The patient tells me that approximately a year ago he started having erythema and swelling of his legs. He was admitted to the hospital with pneumonia. His laboratory studies show a CBC with a white count of 8,310, hemoglobin 7.3, and platelet count 217,000. Creatinine is 7. GFR is 8. Hepatitis panel was nonreactive. The Legionella antigen and the pneumococcal antigen both were negative. Sputum culture grew normal andrew. Blood cultures are negative. PAST MEDICAL HISTORY/REVIEW OF SYSTEMS: Eyes and ears: The patient says his hearing is good but when I was examining him, his hearing was definitely decreased. As far as his vision goes, the patient wears glasses. Neck: No stiffness. Respiratory: The patient was coughing and bringing up some sputum when he 1st came in. He was treated for pneumonia and the cough and the bringing up sputum have decreased quite a bit. Cardiac: No chest pain or palpitations. GI: No nausea, vomiting, or diarrhea. : The patient still does pass urine even though he is in renal failure. He does not have any dysuria currently. Neurologic: No seizures. No loss of motor or sensory function. PREVIOUS HOSPITALIZATIONS AND OPERATIONS: The patient recently had a creation of an arteriovenous fistula. The patient has had a transurethral of the prostate for his hypertrophy and also there was a small area of cancer that was removed. The patient has also had a hernia repair. MEDICAL DISEASES: Positive for hypertension, end-stage renal disease, prostate cancer, and morbid obesity. The patient has started hemodialysis for his renal failure. INFECTIOUS DISEASE HISTORY: Positive for pneumonia. Negative for UTI. FAMILY HISTORY: Positive for cancer. Negative for diabetes or heart attack or stroke. SOCIAL HISTORY: The patient lives in [place]. He is . He does not have any pets. He is retired. The patient does not smoke cigarettes or drink alcoholic beverages or abuse drugs. ALLERGIES: He has an allergy to both penicillin and sulfa Darvocet. The manifestations were hives and shortness of breath. HOME MEDICATIONS: Norvasc, Lasix, and Lopressor. PHYSICAL EXAMINATION: Vital Signs: Temperature is 97.4 degrees, pulse 98, respirations 19, blood pressure is 130/33. Patient weighs 292 pounds. Generally: This is an ill-appearing, elderly male. He is in no acute distress. Head, Eyes, Ears, Nose, and Throat: He had decreased hearing even though he told me his hearing was normal. Also, he was wearing glasses to correct his vision. Neck: The patient was not having any stiffness in his neck. Most recently, he has had a catheter placed in the left side of the neck for hemodialysis. Lungs: Clear to auscultation. Cardiovascular: Heart rate is regular. Abdomen: Soft and nontender. Extremities: Both legs were edematous and erythematous. There was some crusting of the skin also. The patient's left arm had a arteriovenous fistula put in by Dr. Radford. When I looked at the patient's arm where the fistula is, it is not erythematous and the veins and arteries are not bulging. But when I listen to his arm, there was a definite loud bruit. Neurologic: Patient is alert. He can move his extremities. There is no tremor. His memory as regarding his medical history seemed to be intact. Integument: No rash noted. Thank you for the consult. cc: Daniel Monahan MD
[2019-10-19] MEDS ORDERED: VANCOMYCIN 1 GM/NS 1 GM/250 ML IVPB IV ONE (17:00)
[2019-10-19] MEDS: MELATONIN PO SCH (21:16)
[2019-10-19] MEDS: OXY IR PO PRN (21:16)
[2019-10-20] MEDS: KENALOG 0.1% OINTMENT TOP SCH ×4 (00:18→18:59)
[2019-10-20] MEDS: COLACE PO SCH ×3 (00:18→20:29)
[2019-10-20] MEDS: MIRALAX PO SCH ×3 (00:19→20:30)
--- NOTE | 2019-10-20 00:20 | GENERAL SURGERY PROGRESS NOTE ---
DATE: 10/19/2019 HISTORY OF PRESENT ILLNESS: This is a gentleman known to me. He has had a percutaneous fistula a month ago in his left ulnar to ulnar vein. This is maturing well but is not quite ready to use. He came in with pneumonia, respiratory status worsened due to his volume status and he was started on dialysis via a Vas-Cath. His Vas-Cath unfortunately has become nonfunctional and he needs tunnel catheter to facilitate outpatient dialysis as his fistula continues to mature. I reviewed his follow-up official studies patent. There is good flow through the cephalic vein. PHYSICAL EXAMINATION: On examination his left IJ Vas-Cath with no signs of cellulitis. He has a strong thrill in his left forearm and upper arm with no evidence of bruising or ecchymosis. ASSESSMENT AND PLAN: This is a gentleman with end-stage renal disease now on dialysis with pneumonia. He has a tunneled catheter placed. We discussed the risk of bleeding, infection, damage to surrounding structures, conversion of pneumothorax, vascular injury, and the temporary nature of this line. They understand. I have spoken with both the patient and his . We got him on schedule for tomorrow for a PermCath. We will make him n.p.o. at midnight. cc: Shruthi Radford MD
[2019-10-20] MEDS: DUONEB (A & A) INH SCH ×6 (03:34→23:05)
[2019-10-20] MEDS: AZACTAM 1 GM in NS 50 ML IV SCH (05:53)
[2019-10-20 06:22] LABS: BASO# 0.08 X1000 (0.0-0.2); BASO% 0.8 % (0.0-0.8); EOS# 1.19 X1000 (0.0-0.7); EOS% 12.2 % (0.0-10.0); HEMATOCRIT 27.7 % (42.0-52.0); HEMOGLOBIN 8.4 g/dL (14.0-18.0); IMM GRAN# 0.18 X1000 (0.0-0.04); IMM GRAN% 1.8 % (0.0-0.5); LYMPH# 2.18 X1000 (1.2-3.4); LYMPH% 22.4 % (20.5-51.1); MCHC 30.3 g/dL (33-37); MCV 92.3 FL (81-99); MONO# 0.85 X1000 (0.11-0.59); MONO% 8.7 % (1.7-9.3); MPV 9.5 FL (7.4-10.4); NEUT# 5.26 X1000 (1.4-6.5); NEUT% 54.1 % (42.2-75.2); PLT 253 X1000 (130-400); RDW 15.5 % (11.5-14.5); WBC 9.74 X1000 (4.8-10.8)
[2019-10-20 06:31] LABS: ALBUMIN 2.9 g/dL (3.5-5.0); CALCIUM 7.8 mg/dL (8.8-10.2); CREATININE 8.3 mg/dL (0.7-1.2); PHOSPHORUS 8.2 mg/dL (2.7-4.5); POTASSIUM 4.8 mmol/L (3.5-5.1)
[2019-10-20] MEDS ORDERED: XYLOCAINE-MPF 2% ONE (07:49)
[2019-10-20] MEDS ORDERED: DIPRIVAN 1% ONE (07:50)
[2019-10-20] MEDS ORDERED: XYLOCAINE 1%/EPI 1:100,000 ONE (08:23)
[2019-10-20] MEDS ORDERED: NS 250 ML ONE (08:25)
[2019-10-20] MEDS ORDERED: HEPARIN ONE (08:25)
[2019-10-20] MEDS ORDERED: KEFZOL 1 GM/D5W 2 GM/100 ML IVPB ONE (09:11)
[2019-10-20] MEDS ORDERED: EPHEDRINE ONE (09:26)
[2019-10-20] MEDS ORDERED: NS 2,000 ML MISC PRN (10:41)
[2019-10-20] MEDS ORDERED: TIGHT: 0.2 ML/HR FOR DIALYSIS MISC PRN (10:41)
[2019-10-20] MEDS ORDERED: HEPARIN IV PRN (10:41)
--- NOTE | 2019-10-20 10:59 | VASCULAR LAB ---
PROCEDURE NAME: Hemodialysis Access U/S L Arm - 10/18/2019 PROCEDURE: Percutaneous arteriovenous fistula duplex evaluation. HISTORY: Left [id number] arteriovenous fistula created 09/19/2019. FINDINGS: The brachial artery has velocity of 1092 mL/minute, brachial vein is 111, second brachial vein is 125, cephalic vein is 443, basilic 129. The cephalic vein in the proximal portion is 7.1 mm, mid 7.3, distal is 6.6, and is 1 cm deep along its course. The basilic vein is 4.8 mm at proximal, 5.1 mid, and 6.4 in the distal, and is 3 cm deep proximally, 1.5 mid, distal 0.5. The fistula diameter appears to be 6.2 mm in the AP and 9.2 medial to lateral. ASSESSMENT AND PLAN: Well-maturing [id number] arteriovenous fistula with predominant flow via the cephalic vein that seems to be maturing well. cc: MD Shikha Pascal CRNP
[2019-10-20] MEDS: OXY IR PO PRN (11:28)
[2019-10-20] MEDS: COREG PO SCH ×3 (11:28→22:50)
[2019-10-20] MEDS: FOLIC ACID PO SCH (11:29)
[2019-10-20] MEDS: MUCINEX PO SCH ×2 (11:31→20:29)
[2019-10-20] MEDS: HEPARIN SUBQ SCH ×2 (11:31→20:27)
--- NOTE | 2019-10-20 14:55 | PROVIDER PROGRESS NOTE ---
Progress Note Subjective: Pt complaints of pruritus and has scattered abrasions on his upper body from his nails. Son is at bedside at voices the patient had a low appetite yesterday. The patient denies all other complaints. Objective: temperature 97.9, pulse 60, respirations 19, blood pressure 138/40, 02 sat 96% on 2 L NC. General: obese male lying in bed in no acute distress HEENT: normocephalic, atraumatic, pupils equal and reactive, mucous membranes moist. Trachea midline. Skin: warm and dry. Scattered abrasions. Neck: supple, JVD appreciated. Cardiovascular: distant heart tones, S1S2, regular rate and rhythm. No murmurs or gallops. Respiratory: clear anteriorly with equal entry. Abdomen: soft, obese, nontender nondistended. Bowel sounds hypoactive. : non-inspected. Extremities: 2+ pitting to BLE Neurological:alert, oriented to person, time, and place. Labs: WBC 9.74, hemoglobin 8.4, hematocrit 27.7, platelet count 253, sodium 141, potassium 4.8, chloride 99, carbon dioxide 24, BUN 66, creatinine 8.3. Intake 1874, output zero. Impression: Chronic kidney disease stage 5D. BUN and Creatinine are continuing to rise. He is not making adequate urine. He is scheduled for a permcath today with hemodialysis planned after. Blood pressure. In target. Fluid volume. Expanded. He will have renal replacement therapy therapy today. Electrolytes and acid base balance. Correcting with hemodialysis. Nutrition. Adequate. Medication review.
--- NOTE | 2019-10-20 18:08 | OPERATIVE NOTE ---
PROCEDURE DATE: 10/20/2019 PREOPERATIVE DIAGNOSIS: End-stage renal disease. POSTOPERATIVE DIAGNOSES: End-stage renal disease. PROCEDURE PERFORMED: 1. Ultrasound-guided right internal jugular vein PermCath placement. 2. Fluoroscopy less 1 hour. ESTIMATED BLOOD LOSS: 5 mL. SPECIMENS: None. ANESTHESIA: General. INDICATIONS: A 74-year-old gentleman who has progressed to end-stage renal disease. He has an immature percutaneous left upper extremity AV fistula that has been maturing well but not ready for access. FINDINGS: 1. Ultrasound of the right neck showed a compressible internal jugular vein with no evidence of thrombus. 2. Final fluoroscopic image showed good position of the catheter in the superior vena cava-atrial junction no kinking of the catheter, no evidence of pneumothorax. PROCEDURE IN DETAIL: Risks, benefits, and alternatives were discussed and patient consented to the procedure. She was seen preoperatively and surgical site was confirmed. Neck and chest prepped with Betadine and draped in usual fashion. After time-out, he was placed in Trendelenburg position. A focused ultrasound was performed and we accessed the jugular vein on first pass. Dark nonpulsatile venous blood was noted on return. The wire threaded easily, was confirmed with fluoroscopy in the right side of the heart. I made a skin incision 2 fingerbreadths below the level of the clavicle, and tunneled the catheter from the incision in the chest, incision made larger in the neck. A dilator peel-away introducer sheath was advanced and an 18 cm tip to curve pre-flushed, pre-curved catheter was advanced. The sheath was peeled away. It was in good position. We withdrew blood and flushed without resistance. Sterile caps were applied and secured with nylon suture. Incisions are closed at the chest and neck with a 4-0 Monocryl. Dermabond was applied as well the Tegaderm dressing. He was awoken and transferred to recovery. I spoke with the family. cc: Shruthi Radford MD
[2019-10-20] MEDS: AZACTAM 0.5 GM in NS 50 ML IV SCH (18:27)
--- NOTE | 2019-10-20 18:33 | Diag Imaging Result Doc PS360 ---
EXAM: US RENAL 2 (RETROPER) COMPLETE 10/20/2019 HISTORY: new onset hemodialysis with fluid shift TECHNIQUE: Renal ultrasound COMMENT: The kidneys are atrophic in appearance. The urinary bladder is not particularly distended. There is no evidence of hydronephrosis or mass. The right kidney measures 11.5 x 5.6 x 5.8 cm the left is 9.5 x 4.9 x 4.6 cm. IMPRESSION: No evidence of obstructive uropathy. Electronically signed by Erlin Davalos 10/20/2019 6:30 PM
[2019-10-20] MEDS: TYLENOL PO PRN (20:27)
[2019-10-20] MEDS: MELATONIN PO SCH (20:30)
[2019-10-20] MEDS: DULCOLAX PR SCH (22:50)
[2019-10-21] MEDS: AZACTAM 0.5 GM in NS 50 ML IV SCH ×3 (02:13→20:16)
--- NOTE | 2019-10-21 03:52 | PROGRESS NOTE ---
DATE: 10/20/2019 SUBJECTIVE: The patient is resting comfortably in bed. He just returned from having a tunneled dialysis catheter placed. OBJECTIVE: Vital Signs: Temperature 96 degrees, blood pressure 120/40, heart rate 61, respirations 18, O2 saturation 99% on 2 L nasal cannula. General: This is a morbidly obese male, lying in bed in no acute distress. Heart: S1, S2 normal. Regular rate and rhythm. Lungs: Equal air entry bilaterally. No wheezing. No rales. Abdomen: Positive bowel sounds. Soft, obese, nontender, nondistended. Extremities: 3+ edema. Neurologic: The patient is alert and oriented x3. LABS: White blood cell count 9.7, hemoglobin 8.4, hematocrit 27, platelets 253,000. Sodium 141, potassium 4.8, chloride 99, CO2 24, BUN 66, creatinine 8.3, glucose 87. ASSESSMENT AND PLAN: 1. Acute hypoxemic respiratory failure. Multifactorial. The patient is volume overloaded and has pneumonia. Continue to treat the underlying issues. 2. Volume overload. This will be addressed during the patient's routine dialysis sessions. 3. Bilateral lobe pneumonia. Continue on the current antibiotic regimen and bronchodilator therapy. 4. Bilateral lower extremity cellulitis. Continue with intravenous antibiotic therapy. The patient will also need to keep his legs elevated. 5. Pruritus. Improved. Continue on triamcinolone ointment. 6. Chronic kidney disease, stage 5. Continue with dialysis as scheduled by the trauma registrar. 7. Insomnia. Continue on melatonin. 8. Morbid obesity. Aware. 9. Hypertension. Stable. 10. Anemia. Improved. Continue to monitor closely. 11. Constipation. Continue with scheduled laxative therapy. 12. Deep vein thrombosis prophylaxis. Continue on heparin. 13. Disposition. Continue with physical therapy. cc: Jeannie Garcia MD
[2019-10-21] MEDS: DUONEB (A & A) INH SCH ×6 (05:06→23:34)
[2019-10-21 06:27] LABS: BASO# 0.05 X1000 (0.0-0.2); BASO% 0.6 % (0.0-0.8); HEMATOCRIT 24.7 % (42.0-52.0); HEMOGLOBIN 7.4 g/dL (14.0-18.0); IMM GRAN# 0.12 X1000 (0.0-0.04); IMM GRAN% 1.5 % (0.0-0.5); LYMPH# 1.72 X1000 (1.2-3.4); LYMPH% 21.6 % (20.5-51.1); MCH 27.8 PG (27-31); MCV 92.9 FL (81-99); MONO# 0.78 X1000 (0.11-0.59); MONO% 9.8 % (1.7-9.3); MPV 9.2 FL (7.4-10.4); NEUT% 56.5 % (42.2-75.2); PLT 206 X1000 (130-400); RBC 2.66 XMIL (4.7-6.1); RDW 15.6 % (11.5-14.5); WBC 7.97 X1000 (4.8-10.8)
[2019-10-21 06:32] LABS: ALBUMIN 2.5 g/dL (3.5-5.0); CALCIUM 7.8 mg/dL (8.8-10.2); PHOSPHORUS 5.6 mg/dL (2.7-4.5); POTASSIUM 4.7 mmol/L (3.5-5.1)
[2019-10-21] MEDS ORDERED: EPOGEN SUBQ ONE (06:43)
[2019-10-21 07:03] LABS: CREATININE 5.6 mg/dL (0.7-1.2)
--- NOTE | 2019-10-21 07:16 | Diag Imaging Result Doc PS360 ---
EXAM: CHEST-1 VIEW 10/21/2019 HISTORY: pneumonia/pulmonary edema TECHNIQUE: AP portable at 0540 COMMENT: There is a right internal jugular central venous catheter with its tip just above the right atrium. There is volume loss and opacity in the left lower lobe and patchy alveolar opacity bilaterally. Compared to 10/17/2019 there has been worsened opacification of the right lower lobe. IMPRESSION: Pulmonary edema plus minus pneumonia particularly in the left lower lobe. Electronically signed by Erlin Davalos 10/21/2019 7:13 AM
[2019-10-21] MEDS ORDERED: HEPARIN IV PRN (07:41)
[2019-10-21] MEDS ORDERED: TIGHT: 0.2 ML/HR FOR DIALYSIS MISC PRN (07:41)
[2019-10-21] MEDS ORDERED: NS 2,000 ML MISC PRN (07:41)
[2019-10-21] MEDS: HEPARIN SUBQ SCH ×2 (08:08→20:16)
[2019-10-21] MEDS: MIRALAX PO SCH ×2 (08:09→20:21)
[2019-10-21] MEDS: COLACE PO SCH ×2 (08:09→20:16)
[2019-10-21] MEDS: MUCINEX PO SCH ×2 (08:09→20:15)
[2019-10-21] MEDS: FOLIC ACID PO SCH (08:09)
[2019-10-21] MEDS: KENALOG 0.1% OINTMENT TOP SCH ×3 (08:10→17:33)
[2019-10-21] MEDS: COREG PO SCH (08:11)
[2019-10-21] MEDS: ALBUMIN 25% IV SCH (11:15)
--- NOTE | 2019-10-21 16:38 | NEPHROLOGY PROGRESS NOTE ---
DATE: 10/21/2019 SUBJECTIVE: He is sitting in bed. Still requiring oxygen. His last therapy note from today, states that he was able to walk using his forearms to rest on the walker. OBJECTIVE: Blood pressure 113/36, heart rate 60, respiration 18, afebrile.General: No acute distress. A bit disheveled. Skin: Warm and dry. Conjunctivae are pink. Neck: Veins are distended. Heart: Regular. No gallops. Lungs: Equal. No crackles anteriorly. Abdomen: Soft, nontender. Bowel sounds are present. Extremities: Edema 2+. No clubbing or cyanosis. IMPRESSION/PLAN: Chronic kidney disease 5D. He now has a right IJ tunneled catheter. He will dialyze again today using this catheter and tomorrow, in order to work on his volume status aggressively. We will also administer 1 unit of packed red blood cells today. One dose of erythropoietin 20,000 units. No other changes. cc: Rudi Montgomery MD
[2019-10-21] MEDS ORDERED: VANCOMYCIN 1 GM/NS 1 GM/250 ML IVPB IV ONE (17:00)
--- NOTE | 2019-10-21 17:34 | INFECTIOUS DISEASE PROGRESS NO ---
DATE: 10/21/2019 PRESENT ILLNESS: The patient has bilateral leg cellulitis. This has improved due to antibiotics and leg elevations. The patient also is being treated for pneumonia. MEDICATIONS: The patient is on a combination of aztreonam and vancomycin. PHYSICAL EXAMINATION: Vital Signs: Temperature is 97.8 degrees, pulse 60, respirations 18, blood pressure is 113/36. General: This is an ill-appearing elderly male. He is in no acute distress. Head, eyes, ears, nose and throat: He can hear my spoken words and see near objects. He does not have any white coating of his tongue. Neck: No pain with movement. The patient's right jugular vein has a dialysis catheter in it. The site is not erythematous or bleeding. Lungs: Clear to auscultation. Cardiovascular" Heart rate is regular. Abdomen: Soft and nontender. Extremities: Both legs are less edematous and erythematous. There is still some skin crusting occurring also. The patient's left arm has an AV fistula, which is functioning as manifested by a bruit. Neurologic: Patient is alert. He can move his extremities. There is no tremor. LAB AND RADIOLOGY: Procalcitonin is 0.97 which translates into pneumonia is very likely. Chest x-ray shows pulmonary edema and possible left lower lobe pneumonia. ASSESSMENT AND PLAN: Regarding the patient's cellulitis, which is what I was asked to treat, the current antibiotic regimen combined with having the patient elevating his leg seems to be improving his cellulitis. The antibiotics also should help clear the patient's pneumonia. COMORBIDITIES: The patient has end-stage renal disease, prostate cancer, obesity, and the patient is on hemodialysis. cc: Daniel Monahan MD [facility]
--- NOTE | 2019-10-21 17:42 | PROGRESS NOTE ---
DATE: 10/21/2019 SUBJECTIVE: The patient had a brief period of confusion last night and his family also reports that he has periods of confusion throughout the day. He did have a bowel movement yesterday. OBJECTIVE: Vital Signs: Temperature 97.3 degrees, blood pressure 154/50, heart rate 73, respirations 18, O2 saturation is 98% on 2 L nasal cannula. General: This is a chronically ill- appearing elderly male lying in bed in no acute distress. Heart: S1, S2 normal. Regular rate and rhythm. Lungs: Equal air entry bilaterally. No wheezing. No rales. Diminished breath sounds at the bases. Abdomen: Positive bowel sounds. Soft, nontender, nondistended. Extremities: 3+ edema with erythema bilaterally. Neurologic: The patient is alert and oriented x3. LABS: White blood cell count 7.9, hemoglobin 7.4, hematocrit 24, platelets 206,000. Sodium 139, potassium 4.7, chloride 99, CO2 27, BUN 38, creatinine 5.6, glucose 87. IMAGING PROCEDURE: Chest x-ray shows pulmonary edema and pneumonia in the left lower lobe. ASSESSMENT AND PLAN: 1. Acute hypoxemic respiratory failure. Continue to try and wean the patient off of supplemental oxygen. We will continue to treat the pulmonary edema and pneumonia. 2. Volume overload. This will be addressed during the patient's routine dialysis sessions. 3. Bilateral lobe pneumonia. Slowly improving. Continue with the current antibiotic regimen. 4. Bilateral lower extremity cellulitis. Continue with antibiotic therapy. 5. Pruritus. Continue on triamcinolone ointment. 6. Chronic kidney disease stage 5. Continue with dialysis as scheduled by the flavor maker. 7. Morbid obesity. Aware. 8. Insomnia. Continue on melatonin. 9. Depression. The patient's states that she does not want the patient started on any medication at this time. 10. Anemia. The patient is on Epogen. We will monitor the hemoglobin and hematocrit closely. 11. Constipation. Improved. Continue with scheduled laxative therapy. 12. Deep vein thrombosis prophylaxis. Continue on heparin. 13. Continue with physical therapy. I updated the patient's son at the bedside this morning and I also placed a call to Анна Coley and updated her on the patient's condition and treatment plan. cc: Jeannie Garcia MD [facility]
[2019-10-21] MEDS: MELATONIN PO SCH (20:15)
[2019-10-21] MEDS: DULCOLAX PR SCH ×2 (20:16→20:21)
[2019-10-21] MEDS: OXY IR PO PRN (20:46)
[2019-10-22] MEDS: DUONEB (A & A) INH SCH ×6 (03:19→23:14)
[2019-10-22] MEDS: AZACTAM 0.5 GM in NS 50 ML IV SCH ×3 (03:57→19:56)
[2019-10-22 06:40] LABS: HEMATOCRIT 25.9 % (42.0-52.0); HEMOGLOBIN 7.9 g/dL (14.0-18.0); MCH 28.7 PG (27-31); MCHC 30.5 g/dL (33-37); MCV 94.2 FL (81-99); MPV 9.2 FL (7.4-10.4); RBC 2.75 XMIL (4.7-6.1); RDW 16.3 % (11.5-14.5); WBC 7.8 X1000 (4.8-10.8)
[2019-10-22 07:08] LABS: ALBUMIN 3.1 g/dL (3.5-5.0); CREATININE 4.9 mg/dL (0.7-1.2); PHOSPHORUS 4.6 mg/dL (2.7-4.5); POTASSIUM 3.6 mmol/L (3.5-5.1)
[2019-10-22] MEDS ORDERED: NS 2,000 ML MISC PRN (08:26)
[2019-10-22] MEDS ORDERED: HEPARIN IV PRN (08:26)
[2019-10-22] MEDS ORDERED: TIGHT: 0.2 ML/HR FOR DIALYSIS MISC PRN (08:26)
[2019-10-22] MEDS: COLACE PO SCH ×2 (08:27→20:49)
[2019-10-22] MEDS: MUCINEX PO SCH ×2 (08:27→20:48)
[2019-10-22] MEDS: FOLIC ACID PO SCH (08:27)
[2019-10-22] MEDS: ALBUMIN 25% IV SCH (08:27)
[2019-10-22] MEDS: HEPARIN SUBQ SCH ×2 (08:27→20:48)
[2019-10-22] MEDS: MIRALAX PO SCH ×2 (10:28→20:49)
[2019-10-22] MEDS: KENALOG 0.1% OINTMENT TOP SCH ×3 (10:28→20:48)
[2019-10-22] MEDS: SYSTANE EYE DROPS BOTH EYES PRN (11:15)
[2019-10-22] MEDS ORDERED: VANCOMYCIN 1 GM/NS 1 GM/250 ML IVPB IV ONE (17:00)
--- NOTE | 2019-10-22 19:38 | PROGRESS NOTE ---
DATE: 10/22/2019 SUBJECTIVE: The patient is resting comfortably in bed. He states that he had a good night. He is having regular bowel movements. No acute events noted overnight. OBJECTIVE: Vital Signs: Temperature 97 degrees, blood pressure 138/45, heart rate 64, respirations 18, O2 saturation 99% on 2 L nasal cannula. General: This is a chronically ill- appearing elderly male lying in bed in no acute distress. Heart: S1, S2 normal. Regular rate and rhythm. Lungs: Equal air entry bilaterally. No wheezing. No rales. Abdomen: Positive bowel sounds. Soft, obese, nontender, nondistended. Extremities: 2+ edema bilaterally with erythema. Neuro: The patient is alert and oriented x3. LABS: White blood cell count 7.8, hemoglobin 7.9, hematocrit 25, platelets 181,000. Sodium 141, potassium 3.6, chloride 100, CO2 27, BUN 28, creatinine 4.9, glucose 119, phosphorus 4.6, albumin 3.1. ASSESSMENT AND PLAN: 1. Acute hypoxemic respiratory failure. Continue to treat the underlying pneumonia and pulmonary edema. 2. Volume overload. This will be addressed during the patient's routine dialysis sessions. 3. Bilateral lobe pneumonia. Continue on the current antibiotic regimen. 4. Bilateral lower extremity cellulitis. We will continue with antibiotics. The patient has been encouraged to keep his legs elevated. 5. Pruritus. Improved. Continue on the triamcinolone ointment. 6. Morbid obesity. Aware. 7. Chronic kidney disease stage 5. Continue with dialysis as scheduled by the program manufacturing leader. 8. Anemia. Stable. The patient is on Epogen. 9. Constipation. Improved. Continue on the current laxative regimen. 10. Deep vein thrombosis prophylaxis. Continue on heparin. 11. Disposition. Continue with physical therapy. cc: Jeannie Garcia MD
[2019-10-22] MEDS: MELATONIN PO SCH (20:48)
[2019-10-22] MEDS: DULCOLAX PR SCH (20:49)
--- NOTE | 2019-10-22 21:39 | NEPHROLOGY PROGRESS NOTE ---
DATE: 10/22/2019 SUBJECTIVE: He is doing well. He has been up, ambulating with physical therapy in the hallway, using his walker. He has been able to be off of oxygen for most of the day yesterday. Eating well. OBJECTIVE: Vital signs: Blood pressure 126/42, heart rate 62, respiration 18, afebrile. General: No acute distress. Skin: Warm and dry. Conjunctivae are pink. Neck: Neck veins are not appreciated. Heart: Regular. Lungs: Equal, few scattered crackles. Abdomen: Obese, soft, nontender. Extremities: 2+ edema. No clubbing or cyanosis. IMPRESSION: Chronic kidney disease 5D. Electrolytes/acid base are in target. He remains moderately volume overloaded but improved. We will dialyze him again today with a goal of another 4 L of ultrafiltration. He is receiving albumin for assistance with volume management and his blood pressure has done well. He received a 2nd unit of packed red blood cells and his hemoglobin is now 7.9. He did not improve significantly but is stable. Follow. cc: Rudi Montgomery MD
[2019-10-23] MEDS: DUONEB (A & A) INH SCH ×6 (03:18→23:18)
[2019-10-23] MEDS: AZACTAM 0.5 GM in NS 50 ML IV SCH ×3 (03:47→19:38)
[2019-10-23 06:25] LABS: HEMATOCRIT 29.1 % (42.0-52.0); HEMOGLOBIN 8.8 g/dL (14.0-18.0); MCH 28.9 PG (27-31); MCHC 30.2 g/dL (33-37); MCV 95.4 FL (81-99); MPV 9.5 FL (7.4-10.4); RBC 3.05 XMIL (4.7-6.1); RDW 16.4 % (11.5-14.5); WBC 9.74 X1000 (4.8-10.8)
[2019-10-23 07:56] LABS: ALBUMIN 3.6 g/dL (3.5-5.0); CALCIUM 8.8 mg/dL (8.8-10.2); CREATININE 4.3 mg/dL (0.7-1.2)
[2019-10-23] MEDS: COLACE PO SCH ×2 (09:11→20:34)
[2019-10-23] MEDS: HEPARIN SUBQ SCH ×2 (09:11→20:34)
[2019-10-23] MEDS: MIRALAX PO SCH ×2 (09:11→20:35)
[2019-10-23] MEDS: FOLIC ACID PO SCH (09:11)
[2019-10-23] MEDS: ALBUMIN 25% IV SCH (09:11)
[2019-10-23] MEDS: MUCINEX PO SCH ×2 (09:11→20:34)
[2019-10-23] MEDS: KENALOG 0.1% OINTMENT TOP SCH ×3 (09:12→20:34)
--- NOTE | 2019-10-23 17:22 | PROGRESS NOTE ---
DATE: 10/23/2019 SUBJECTIVE: The patient is resting comfortably in bed. He states that he had a good night. He has no complaints at this time. OBJECTIVE: Vital Signs: Temperature 97.7 degrees, blood pressure 138/38, heart rate 71, respirations 19, O2 saturation is 94% on 2 L nasal cannula. General: This is a chronically ill- appearing, elderly male lying in bed, in no acute distress. Heart: S1, S2 normal. Regular rate and rhythm. Lungs: Equal air entry bilaterally. No wheezing. No rales. Abdomen: Positive bowel sounds. Soft, nontender, nondistended. Extremities: Have 2+ edema with erythema. Neurologic: The patient is alert and oriented x4. LABS: White blood cell count 9.7, hemoglobin 8.8, hematocrit 29, platelets 205,000. Sodium 140, potassium 4, chloride 100, CO2 27, BUN 22, creatinine 4.3, glucose 113. ASSESSMENT AND PLAN: 1. Acute hypoxemic respiratory failure. Continue to treat the underlying pneumonia and pulmonary edema. The patient is on supplemental oxygen. 2. Volume overload. This will be addressed during the patient's routine dialysis sessions. 3. Bilateral lobe pneumonia. We will repeat a chest x-ray tomorrow. Continue on current antibiotic regimen. 4. Bilateral lower extremity cellulitis. Slowly improving. Continue to keep the patient's legs elevated and continue on antibiotic therapy. 5. Pruritus. Continue on triamcinolone ointment. 6. Morbid obesity. Aware. 7. Chronic kidney disease stage 5. Management as per the cream dumper. 8. Anemia. Stable. The patient is on Epogen. 9. Deep vein thrombosis prophylaxis. Continue on heparin. 10. Disposition. Continue with physical therapy. I updated and the patient's son today about the treatment plan. All of their questions were answered. cc: Jeannie Garcia MD [facility]
[2019-10-23] MEDS: MELATONIN PO SCH (20:34)
[2019-10-23] MEDS: DULCOLAX PR SCH (20:35)
[2019-10-24] MEDS: DUONEB (A & A) INH SCH ×5 (03:28→23:37)
[2019-10-24] MEDS: AZACTAM 0.5 GM in NS 50 ML IV SCH ×3 (04:32→21:05)
[2019-10-24 05:55] LABS: HEMATOCRIT 27.8 % (42.0-52.0); HEMOGLOBIN 8.2 g/dL (14.0-18.0); MCH 28.5 PG (27-31); MCHC 29.5 g/dL (33-37); MCV 96.5 FL (81-99); MPV 9.2 FL (7.4-10.4); RBC 2.88 XMIL (4.7-6.1); RDW 16.3 % (11.5-14.5); WBC 9.92 X1000 (4.8-10.8)
[2019-10-24 06:34] LABS: ALBUMIN 3.5 g/dL (3.5-5.0); CALCIUM 8.8 mg/dL (8.8-10.2); CREATININE 7.3 mg/dL (0.7-1.2); PHOSPHORUS 5.2 mg/dL (2.7-4.5); POTASSIUM 4.3 mmol/L (3.5-5.1)
[2019-10-24] MEDS: SYSTANE EYE DROPS BOTH EYES PRN (07:40)
--- NOTE | 2019-10-24 08:43 | Diag Imaging Result Doc PS360 ---
EXAM: CHEST-1 VIEW 10/24/2019 HISTORY: Pneumonia TECHNIQUE: AP portable upright at 0836 COMMENT: There is alveolar opacity in the lingula and left lower lobe. There has been some improvement in the opacification of the right lower lobe since 10/21/2019. Otherwise are has been no significant change. IMPRESSION: Improved pulmonary edema and/or pneumonia in the right lower lobe. Atelectasis versus pneumonia in the lingula and left lower lobe. Electronically signed by Erlin Davalos 10/24/2019 8:41 AM
[2019-10-24] MEDS: MUCINEX PO SCH ×2 (09:00→21:05)
[2019-10-24] MEDS: HEPARIN SUBQ SCH ×2 (09:00→21:05)
[2019-10-24] MEDS: FOLIC ACID PO SCH (09:00)
[2019-10-24] MEDS: COLACE PO SCH ×2 (09:00→21:06)
[2019-10-24] MEDS: KENALOG 0.1% OINTMENT TOP SCH ×3 (09:00→21:05)
[2019-10-24] MEDS: MIRALAX PO SCH ×2 (09:00→21:04)
[2019-10-24] MEDS ORDERED: HEPARIN IV PRN (09:01)
[2019-10-24] MEDS ORDERED: NS 2,000 ML MISC PRN (09:01)
--- NOTE | 2019-10-24 15:05 | PROGRESS NOTE ---
DATE: 10/24/2019 SUBJECTIVE: The patient is sitting up in the chair eating breakfast. He has no complaints at this time. OBJECTIVE: Vital Signs: Temperature 97.9 degrees, blood pressure 132/59, heart rate 64, respiratory rate 15, O2 saturation 98% on 2 L nasal cannula. General: This is a morbidly obese male sitting up in a chair in no acute distress. Heart: S1, S2 normal. Regular rate and rhythm. Lungs: Equal air entry bilaterally. Diminished breath sounds at the bases. Abdomen: Positive bowel sounds. Soft, obese, nontender, nondistended. Extremities: 2+ edema with erythema. Neurologic: The patient is alert and oriented x3. LABS: White blood cell count 9.9, hemoglobin 8.2, hematocrit 27, platelets 189,000. Sodium 140, potassium 4.3, chloride 100, CO2 25, BUN 39, creatinine 7.3, glucose 106. DIAGNOSTIC DATA: Chest x-ray shows improvement in the pulmonary edema and right lower lobe pneumonia. ASSESSMENT AND PLAN: 1. Acute hypoxemic respiratory failure. Continue to treat the underlying issues. 2. Volume overload. This will be addressed during the patient's dialysis session. 3. Pneumonia. Slowly improving. Continue with antibiotic therapy. 4. Bilateral lower extremity cellulitis. Continue to keep the legs elevated and continue with antibiotic therapy. 5. Pruritus. Unchanged. Continue with triamcinolone ointment. 6. Morbid obesity. Aware. 7. Chronic kidney disease stage 5. Management as per the bi tester. 8. Anemia. The patient is on Epogen. 9. Deep vein thrombosis prophylaxis. Continue on heparin. 10. Disposition. Continue with physical therapy. Once the patient is medically stable, he will be discharged home with home health. I updated Ms Coley and the patient's son today about the treatment plan. All of their questions were answered. The patient is stable for transfer to the medical floor on telemetry. cc: Jeannie Garcia MD [facility]
--- NOTE | 2019-10-24 15:10 | PROVIDER PROGRESS NOTE ---
Progress Note Subjective: patient complains of itching to generalized body. He also admits to shortness of breath on exertion. No other uremic complaints. Objective: temperature 97.9, pulse 63, respiration 16, blood pressure 123/43, O2 sat 98% on 3 L nasal cannula. General: obese male lying in bed in no acute distress HEENT: normocephalic, atraumatic, pupils equal and reactive, mucous membranes moist. Trachea midline. Skin: warm and dry. Scattered abrasions. Neck: supple, 8cm JVD appreciated in upright position. Cardiovascular: distant heart tones, S1S2, regular rate and rhythm. No murmurs or gallops. Respiratory: bilateral posterior crackles to bases. Abdomen: soft, obese, nontender nondistended. Bowel sounds hypoactive. : non-inspected. Extremities:1+ pitting to BLE, BLEs remain erythematous. Neurological:alert, oriented to person, time, and place. Labs: WBC 9.92, hemoglobin 8.2, hematocrit 27.8, platelet count 189, sodium 140, potassium 4.3, chloride 100, carbon dioxide 25, BUN 39, creatinine 7.3. Intake 630, output zero. Impression: Chronic kidney disease with new requirement for Renal replacement therapy. His last hemodialysis treatment was Thursday. His blood pressure is stable, he no longer makes adequate urine, instead he says he has a few drops during the day. He complains of itching and SOB this morning. We will plan to hemodialyze him today. OK for discharge from my perspective. Blood pressure. In target. Fluid volume. Expanded. He will have renal replacement therapy today. Electrolytes and acid base balance. Correcting with hemodialysis. Nutrition. Adequate. Medication review.
[2019-10-24] MEDS ORDERED: VANCOMYCIN 1 GM/NS 1 GM/250 ML IVPB IV ONE (17:00)
--- NOTE | 2019-10-24 18:42 | INFECTIOUS DISEASE PROGRESS NO ---
DATE: 10/24/2019 PRESENT ILLNESS: The patient has improving bilateral leg cellulitis and bilateral pneumonia. MEDICATIONS: The patient has been on aztreonam for 4 days and vancomycin for 9 days. PHYSICAL EXAMINATION: Vital Signs: Temperature is 97.9 degrees, pulse 84, respirations 15, blood pressure 132/59. General: This is a somewhat ill-appearing elderly male. He is in no acute distress, and he actually looks much better today than he did last week. Head/Eyes/Ears/Nose/Throat: He can hear my spoken words and see near objects. He does not have any white coating on his tongue. Neck: No pain with movement. Thorax: The patient's right chest dialysis catheter site is not purulent or bleeding. Lungs: Clear to auscultation. Cardiovascular: Regular heart rate. Abdomen: Soft and nontender. Extremities: Both legs continue to look less edematous and erythematous. Neurologic: Patient is alert. He can move his extremities. There is no tremor. LAB AND X-RAY: Creatinine is 7.3. GFR is 7. CBC shows a white count of 9920, hemoglobin 8.2, and platelet count of 189,000. As mentioned above, the procalcitonin is 0.97, which translates into the patient very likely having pneumonia. Chest x-ray shows improvement in the right lower lobe. ASSESSMENT AND PLAN: Patient has leg cellulitis and pneumonia. I plan to continue the current antibiotics. The patient is having a lot of his edema removed by dialysis. The patient also is elevating his legs a lot. COMORBIDITIES: End-stage renal disease, prostate cancer, obesity, and bilateral and chronic leg edema, which is clearing. cc: Daniel Monahan MD
[2019-10-24] MEDS: OXY IR PO PRN (21:04)
[2019-10-24] MEDS: MELATONIN PO SCH (21:05)
[2019-10-24] MEDS: DULCOLAX PR SCH (21:07)
[2019-10-25] MEDS: DUONEB (A & A) INH SCH ×6 (03:33→23:16)
[2019-10-25] MEDS: AZACTAM 0.5 GM in NS 50 ML IV SCH ×3 (03:49→20:37)
[2019-10-25 05:38] LABS: HEMATOCRIT 31.5 % (42.0-52.0); HEMOGLOBIN 9.3 g/dL (14.0-18.0); MCH 28.7 PG (27-31); MCHC 29.5 g/dL (33-37); MCV 97.2 FL (81-99); MPV 9.5 FL (7.4-10.4); RBC 3.24 XMIL (4.7-6.1); RDW 16.4 % (11.5-14.5); WBC 11.52 X1000 (4.8-10.8)
[2019-10-25 05:47] LABS: ALBUMIN 3.9 g/dL (3.5-5.0); CALCIUM 9.3 mg/dL (8.8-10.2); PHOSPHORUS 5.1 mg/dL (2.7-4.5); POTASSIUM 4.8 mmol/L (3.5-5.1)
[2019-10-25 05:56] LABS: CREATININE 5.5 mg/dL (0.7-1.2)
--- NOTE | 2019-10-25 10:21 | INFECTIOUS DISEASE PROGRESS NO ---
DATE: 10/25/2019 PRESENT ILLNESS: The patient has bilateral leg cellulitis and bilateral pneumonia. MEDICATIONS: The patient has been on vancomycin for 10 days, and aztreonam for 5 days. PHYSICAL EXAMINATION: Vital Signs: Temperature is 98.4 degrees, pulse 99, respirations 17, blood pressure 108/78. General: This is an obese, ill-appearing, elderly male. He is in no acute distress. HEENT: He can hear my spoken words and see near objects. He does not have any white patches in his mouth. Neck: No stiffness. Thorax: The patient has a right-sided dialysis catheter in place. The site is not erythematous or purulent. Lungs: Clear to auscultation. Cardiovascular: Heart rate is regular. Abdomen: Soft and nontender. Extremities: Both legs are edematous. They have a pinkish discoloration. Neurologic: The patient was sleeping, but he is easily arousable, and he can move his extremities. IMAGING AND LABORATORY DATA: There is no new radiographic study. The CBC shows a white count of 11,520, hemoglobin 9.3, and platelet count 237,000. Creatinine is 5.5. GFR is 10. As I noted yesterday, the procalcitonin is 0.97, which translates into that it is very likely that the patient has pneumonia. ASSESSMENT AND PLAN: The patient has bilateral leg cellulitis and pneumonia. I plan to continue the current antibiotics. Also, I have ordered to raise the foot of the patient's bed with the manual gauge continuously, and I have also ordered for the patient to elevate his legs as long as possible. COMORBIDITIES: End-stage renal disease, the patient is on dialysis, prostate cancer, obesity, and chronic leg edema. cc: Daniel Monahan MD
[2019-10-25] MEDS: MIRALAX PO SCH ×2 (10:41→20:40)
[2019-10-25] MEDS: HEPARIN SUBQ SCH ×2 (10:41→20:37)
[2019-10-25] MEDS: COLACE PO SCH ×2 (10:41→20:37)
[2019-10-25] MEDS: MUCINEX PO SCH ×2 (10:41→20:37)
[2019-10-25] MEDS: FOLIC ACID PO SCH (10:42)
[2019-10-25] MEDS: KENALOG 0.1% OINTMENT TOP SCH ×3 (10:45→20:39)
--- NOTE | 2019-10-25 15:58 | PROGRESS NOTE ---
DATE: 10/25/2019 INTERVAL HISTORY: Patient doing well. He was able to be weaned off oxygen entirely this morning. No new complaints. No acute events overnight. REVIEW OF SYSTEMS: Twelve point review of systems negative except as per interval history. LABORATORY: WBC 11.5, hemoglobin 9.3, hematocrit 31.5, platelets 237,000. Sodium 138, potassium 4.8, BUN 31, creatinine 5.5, glucose 106, phosphorus 5.1. VITAL SIGNS: T-max 98.4 degrees, pulse 63, respirations 17, blood pressure 127/38, O2 saturation 98% on room air. PHYSICAL EXAMINATION: General: No acute distress. Vital Signs: As above. HEENT: Normocephalic, atraumatic. Moist mucous membranes. No cervical adenopathy. Cardiovascular: Regular rate and rhythm. No murmurs noted. Pulmonary: Essentially clear to auscultation within limits of body habitus. Abdomen: Soft, nontender, nondistended. Bowel sounds positive. Extremities: Peripheral pulses intact. There is 1 to 2+ pitting edema in bilateral lower extremities with some pinkness that appears to be likely chronic venous stasis dermatitis. Neurologic: Cranial nerves grossly intact aside from moderate difficulty hearing. No focal deficits identified. Psychiatric: Normal mood and affect. Awake, alert, oriented x3. ASSESSMENT AND PLAN: 1. Acute hypoxic respiratory failure, pneumonia, volume overload. Hypoxia essentially resolved at this point. Saturating well on room air. Awaiting final antibiotic recommendations from Infectious Disease. Hopefully, we will be able to discharge home with home health tomorrow after dialysis and finalization of antibiotics. 2. Volume overload. Secondary to end-stage renal disease, markedly improved with dialysis. 3. Pneumonia on antibiotics with vancomycin and aztreonam currently. 4. Bilateral lower extremity cellulitis and chronic venous stasis dermatitis. Much improved with antibiotics although he will likely keep some swelling forever. On antibiotics as above. 5. Obesity. Aware. 6. End-stage renal disease on dialysis. Nephrology on board and managing. 7. Anemia of chronic disease, slightly improved. 8. Disposition: The patient is now off oxygen. Awaiting final antibiotic recommendations and hopefully home after dialysis tomorrow.
[2019-10-25] MEDS: TYLENOL PO PRN (17:22)
--- NOTE | 2019-10-25 19:08 | PROVIDER PROGRESS NOTE ---
Progress Note Subjective: Pt still complains of itching, no other complaints. Objective: temperature 98.4, pulse 99, respirations 17, blood pressure 108/78, O2 sat 99% on 3 L nasal cannula. General: obese male lying in bed in no acute distress HEENT: normocephalic, atraumatic, pupils equal and reactive, mucous membranes moist. Trachea midline. Skin: warm and dry. Scattered abrasions. Neck: supple, 8cm JVD appreciated Cardiovascular: distant heart tones, S1S2, regular rate and rhythm. No murmurs or gallops. Respiratory: bilateral posterior crackles to bases. Abdomen: soft, obese, nontender nondistended. Bowel sounds hypoactive. : non-inspected. Extremities:1+ pitting to BLE, BLEs remain erythematous. Right tunnel cath noted. Neurological:alert, oriented to person, time, and place. Labs: WBC 11.52, hemoglobin 9.3, hematocrit 31.5, platelet count 237, sodium 138, potassium 4.8, chloride 98, carbon dioxide 28, BUN 31, creatinine 5.5. Impression: Chronic kidney disease with new requirement for Renal replacement therapy. His last hemodialysis treatment was yesterday. We will plan on hemodialysis tomorrow before discharge. Blood pressure. In target. Fluid volume. Improved but Expanded. Electrolytes and acid base balance. Improved. Nutrition. Adequate. Disposition. Need to obtain home oxygen and check with ID about outpatient IV antibiotics. Outpatient hemodialysis in place. Medication review.
[2019-10-25] MEDS: MELATONIN PO SCH (20:37)
[2019-10-25] MEDS: DULCOLAX PR SCH (20:40)
[2019-10-26] MEDS: DUONEB (A & A) INH SCH ×4 (04:23→18:15)
[2019-10-26 05:29] LABS: HEMATOCRIT 28.4 % (42.0-52.0); HEMOGLOBIN 8.6 g/dL (14.0-18.0); MCH 28.8 PG (27-31); MCHC 30.3 g/dL (33-37); MPV 9.3 FL (7.4-10.4); RBC 2.99 XMIL (4.7-6.1); RDW 16.1 % (11.5-14.5); WBC 8.83 X1000 (4.8-10.8)
[2019-10-26] MEDS: AZACTAM 0.5 GM in NS 50 ML IV SCH ×2 (05:30→13:11)
[2019-10-26] MEDS ORDERED: NS 2,000 ML MISC PRN (06:21)
[2019-10-26] MEDS ORDERED: HEPARIN IV PRN (06:21)
[2019-10-26] MEDS ORDERED: TIGHT: 0.2 ML/HR FOR DIALYSIS MISC PRN (06:21)
--- NOTE | 2019-10-26 10:09 | INFECTIOUS DISEASE PROGRESS NO ---
DATE: 10/26/2019 PRESENT ILLNESS: The patient has bilateral leg cellulitis and pneumonia. MEDICATIONS: This is the 11th day of treatment with vancomycin and the 6th day of treatment with aztreonam. PHYSICAL EXAMINATION: Vital Signs: Temperature is 98 degrees, pulse 76, respirations 17, blood pressure 133/81. General: This is an obese ill-appearing elderly male. He is in no acute distress. HEENT: He can hear my spoken words and see near objects. He does not have any white coating on his tongue. Neck: No pain with movement. Thorax: Patient has a right-sided dialysis catheter in place. The site is not bleeding and it is not erythematous or tender. Lungs: Clear to auscultation. Cardiovascular: Heart rate is regular. Abdomen: Soft and nontender. Extremities: Both legs are less edematous and less erythematous than they were a few days ago. Neurologic: The patient was sleeping but he was easily arousable. He talks in a coherent fashion. He can move his extremities. LAB AND X-RAY: There is no new radiographic study and the only lab study that is back at this time is a CBC which shows a white count of 8830, hemoglobin 8.6, and platelet count 218,000. ASSESSMENT AND PLAN: Patient has bilateral leg cellulitis and pneumonia. The plan is to send the patient home today. I will be stopping his antibiotics consisting of aztreonam and vancomycin. I am going to put the patient on Levaquin 250 mg daily to be given in the afternoon, so it will be after the patient is dialyzed. Some of the side effects of the antibiotics, including rash, diarrhea, seizures, and tendon rupture have been explained to the patient, who agrees with treatment. I have electronically sent the prescription to the patient's pharmacy of choice. My plan is also to have the patient come back to my office in 2 weeks, at which time he will be examined and also repeat a chest x-ray will be done. Again I emphasized to the patient the importance of elevating his legs as much as possible and he told me when he is not standing, he has a recliner which elevates his legs. COMORBIDITIES: End-stage renal disease, for which the patient is on dialysis, prostate cancer, obesity, and chronic leg edema. cc: Daniel Monahan MD
[2019-10-26 11:39] VITALS: BP 105/51
[2019-10-26] MEDS: HEPARIN SUBQ SCH (12:09)
[2019-10-26] MEDS: MIRALAX PO SCH (12:10)
[2019-10-26] MEDS: FOLIC ACID PO SCH (12:10)
[2019-10-26] MEDS: COLACE PO SCH (12:10)
[2019-10-26] MEDS: MUCINEX PO SCH (12:11)
--- NOTE | 2019-10-26 12:32 | DISCHARGE SUMMARY ---
ADMISSION DATE: 10/14/2019 DISCHARGE DATE: 10/26/2019 PRIMARY CARE PHYSICIAN: None. ADMISSION DIAGNOSES: 1. Pneumonia. 2. End-stage renal disease. 3. Anemia, unspecified. 4. Hypertension. DISCHARGE DIAGNOSES: 1. Acute hypoxic respiratory failure, pneumonia, and fluid volume overload, improved. 2. Pneumonia, improved. 3. Bilateral lower extremity cellulitis and chronic venous stasis dermatitis. 4. End-stage renal disease, on dialysis. 5. Anemia of chronic disease. 6. Obesity. SUMMARY OF FINDINGS: This is a 74-year-old male who presented initially to [facility] with shortness of breath and coughing, was evaluated there, had imaging done that showed pneumonia. He also recently had a graft placed for end-stage renal disease, and the family requested that he be transferred to [facility]. He was placed on the medical floor. We checked blood cultures. Consulted nephrology. Blood culture showed no growth. We did a chest x-ray that showed pulmonary edema and/or pneumonia in the left lower lobe and right lower lobe. Nephrology was consulted. We also consulted Surgery for insertion of a central venous dialysis catheter with ultrasound guidance. We repeated a chest x-ray on 10/16/2019 that showed worsened pulmonary edema. He started dialysis, tolerated well. On 10/18/2019, we did a hemodialysis access duplex ultrasound that showed a well-maturing [id number] arteriovenous fistula with predominant flow via the cephalic vein that seems to be maturing well. We did a renal ultrasound on 10/20/2019 that showed no evidence of obstructive uropathy. Infectious Disease also followed the patient for his cellulitis and pneumonia. They continued his current antibiotics. He was keeping his legs elevated, and his edema improved with dialysis. He has been afebrile for greater than 24 hours. His white blood cell count has remained normal, and it is now felt that he can safely be discharged home with Home Health Services. DISCHARGE MEDICATIONS: Include Levaquin 250 mg p.o. daily (#7 with no refills), and metoprolol 25 mg p.o. daily. He will continue dialysis on an outpatient basis per Nephrology. FOLLOWUP: He will follow up with primary care physician, Infectious Disease, Nephrology, and Surgery, and again he will have home health. DISCHARGE INSTRUCTIONS: All discharge instructions were reviewed with the patient, and he verbalized understanding. TIME SPENT: A 35-minute discharge. Dictated by LONNIE Lew for Gael Gerard MD cc: LONNIE Lew MD Reginald D. Gladish, MD legs still with marked edema which is chronic but somewhat improved and dense erythema also much improved. lungs essentially clear at this point. stable to discharge home to complete course of PO antibiotics and follow up with his pcp and ID and nephrology. patient did desaturate to 88 with ambulation so home O2 was arranged. [facility]TD[facility]
[2019-10-26] MEDS: KENALOG 0.1% OINTMENT TOP SCH (13:09)
[2019-10-26] MEDS ORDERED: LEVAQUIN PO SCH (14:00)
--- NOTE | 2019-10-26 16:07 | PROVIDER PROGRESS NOTE ---
Progress Note Subjective: Pt voices feeling tired but no other complaints. He is currently receiving hemodialysis. Objective: temperature 98.0, pulse 76, respirations 17, blood pressure 133/81, 02 sat 97% on room air. General: obese male lying in bed in no acute distress HEENT: normocephalic, atraumatic, pupils equal and reactive, mucous membranes moist. Trachea midline. Skin: warm and dry. Scattered abrasions. Neck: supple, 8cm JVD appreciated Cardiovascular: distant heart tones, S1S2, regular rate and rhythm. No murmurs or gallops. Respiratory: bilateral posterior crackles to bases. Abdomen: soft, obese, nontender nondistended. Bowel sounds hypoactive. : non-inspected. Extremities:1+ pitting to BLE, BLEs remain erythematous. Right tunnel cath noted. Neurological:alert, oriented to person, time, and place. Labs: WBC 8.83, hemoglobin 8.6, hematocrit 28.4, platelet count 218. Intake 960, output zero. Impression: Chronic kidney disease with new requirement for Renal replacement therapy. Plan for hemodialysis today with 2 L ultrafiltration over 3.5 hours. Blood pressure. In target. Fluid volume. Improved but Expanded. Electrolytes and acid base balance. Improved. Nutrition. Adequate. Medication review. Renal dose Levaquin ordered.
[2019-10-26] MEDS ORDERED: VANCOMYCIN 1 GM/NS 1 GM/250 ML IVPB IV ONE (17:00)
== END 2019-10-26 16:06 | disposition home health service (06) | DRG 193 ==
LOC: SUATTDRO 20:03 → DIRADM 20:03 → 1N 23:19 → 2N 10-15 15:57 → 1N 10-24 18:58
PROVIDERS: ATTEND Internal Medicine